=== PATIENT | female | born 1935 | race Caucasian/White ===

== ENCOUNTER 2017-12-16 16:49 | Emergency (ER) | payer MEDICARE, OTHER ==
--- NOTE | 2017-12-16 17:12 | EDM.PDOC ---
ED HPI GENERAL MEDICAL PROBLEM - General Chief Complaint: ENT Problem Stated Complaint: tightness in throat Time Seen by Provider: 12/16/17 17:00 Source of Information: Reports: Patient History Limitations: Reports: No Limitations - History of Present Illness INITIAL COMMENTS - FREE TEXT/NARRATIVE: Jaki reports post nasal discharge most of the month of November, significance unknown. The sputa is clear, seems to pool near the back of the throat and hypopharynx, not associated with hoarseness, stridor, or cough. There is no reported seasonal allergies, epistaxis, nasal polyp, sinus disease, or swollen lymph nodes of the neck. She has tried OTC meds including Flonase NS and Phenergan Exp w Cod without benefit. - Related Data Allergies Allergy/AdvReac Type Severity Reaction Status Date / Time No Known Allergies Allergy Verified 07/30/15 23:49 Home Meds: Home Meds Simvastatin [Zocor] 80 mg PO BEDTIME 07/31/15 [History] Levothyroxine [Synthroid] 50 mcg PO DAILY 02/18/16 [History] Metoprolol Succinate [Toprol XL] 25 mg PO DAILY 02/18/16 [History] Phytonadione [Vitamin K] 100 mcg PO DAILY 02/18/16 [History] Zaleplon [Sonata] 5 mg PO BEDTIME 02/18/16 [History] Acetaminophen [Tylenol] 650 mg PO Q4H PRN #0 tablet 02/19/16 [Rx] Docusate Sodium [Colace] 100 mg PO BID PRN #0 cap 02/19/16 [Rx] Warfarin [Coumadin] 2.5 mg PO DAILY #0 02/19/16 [Rx] hydrALAZINE [Apresoline] 50 mg PO TID #90 tablet 02/19/16 [Rx] Past Medical History HEENT History: Reports: Impaired Vision, Other (See Below) Other HEENT History: VERTIGO Cardiovascular History: Reports: High Cholesterol, Hypertension, Other (See Below) Other Cardiovascular History: IRREGULAR HEART RATE Respiratory History: Reports: COPD Genitourinary History: Reports: UTI, Recurrent, Other (See Below) Other Genitourinary History: 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: Other Neuro History: ON & OFF CONFUSION FOR THE PAST MONTHS - Infectious Disease History Infectious Disease History: Reports: Chicken Pox, Measles - Past Surgical History Female Surgical History: Reports: Ureteral Stent Musculoskeletal Surgical History: Reports: Hip Replacement, Knee Replacement, Shoulder Replacement, Other (See Below) Social & Family History - Family History Family Medical History: Noncontributory - Caffeine Use Caffeine Use: Reports: Coffee Caffeine Use Comment: one cup a day ED ROS ENT - Review of Systems Review Of Systems: ROS reveals no pertinent complaints other than HPI. ED EXAM, ENT - Physical Exam Exam: See Below Exam Limited By: No Limitations General Appearance: Alert, WD/WN, No Apparent Distress, Anxious Eye Exam: Bilateral Eye: EOMI, Normal Inspection, PERRL Ears: Normal External Exam, Normal TMs Nose: Normal Inspection, Normal Mucousa, No Blood Mouth/Throat: Normal Gums, Normal Lips, Normal Teeth, Other (mild posterior hyperplasia) Head: Normocephalic Neck: Normal Inspection, Supple, Non-Tender Respiratory/Chest: Lungs Clear, Normal Breath Sounds Cardiovascular: Regular Rate, Rhythm, No Murmur Back: Normal Inspection Extremities: Normal Inspection Neurological: Alert, Oriented, CN II-XII Intact, Normal Cognition, Normal Gait, No Motor/Sensory Deficits Psychiatric: Normal Affect, Anxious Skin: Warm, Dry Lymphatic: No Adenopathy Course - Vital Signs Text/Narrative:: Following assessment at the [facility] ED, I reviewed chest x rays and sinus series, within normal limits for age; CBC also WNL. - Orders/Labs/Meds Orders: Active Orders 24 hr Category Date Time Status Chest 2V [CR] Stat Exams 12/16/17 17:11 Taken Sinus Comp Min 3V [CR] Stat Exams 12/16/17 17:06 Taken Labs: Laboratory Tests 12/16/17 Range/Units 17:32 WBC 10.4 (4.5-12.0) X10-3/uL RBC 5.09 (3.23-5.20) x10(6)uL Hgb 14.6 D (11.5-15.5) g/dL Hct 43.5 (30.0-51.3) % MCV 85.4 (80-96) fL MCH 28.7 (27.7-33.6) pg MCHC 33.7 (32.2-35.4) g/dL RDW 14.8 (11.5-15.5) % Plt Count 225 (125-369) X10(3)uL MPV 8.1 (7.4-10.4) fL Neut % (Auto) 71.6 (46-82) % Lymph % (Auto) 17.2 (13-37) % Smyth % (Auto) 8.9 (4-12) % Eos % (Auto) 1 (1.0-5.0) % Baso % (Auto) 2 (0-2) % Neut # (Auto) 7.4 (1.6-8.3) # Lymph # (Auto) 1.8 (0.6-5.0) # Smyth # (Auto) 0.9 (0.0-1.3) # Eos # (Auto) 0.1 (0.0-0.8) # Baso # (Auto) 0.2 (0.0-0.2) # Departure - Departure Time of Disposition: 17:46 Disposition: Home, Self-Care 01 Condition: Good Clinical Impression: Pharyngitis Qualifiers: Pharyngitis/tonsillitis etiology: unspecified etiology Qualified Code(s): J02.9 - Acute pharyngitis, unspecified - Discharge Information Forms: ED Department Discharge - Problem List & Annotations (1) Pharyngitis SNOMED Code(s): 281306323 Code(s): J02.9 - ACUTE PHARYNGITIS, UNSPECIFIED Status: Acute Current Visit: Yes Annotation/Comment:: Pharyngitis NOS. A source for clear drainage was not apparent on exam or with limited work up. I suggested holding current meds and follow up with PCP if sxs persist. Qualifiers: Pharyngitis/tonsillitis etiology: unspecified etiology Qualified Code(s): J02.9 - Acute pharyngitis, unspecified - Problem List Review Problem List Initiated/Reviewed/Updated: Yes - My Orders Last 24 Hours: My Active Orders 12/16/17 17:06 Sinus Comp Min 3V [CR] Stat 12/16/17 17:11 Chest 2V [CR] Stat - Assessment/Plan Last 24 Hours: My Active Orders 12/16/17 17:06 Sinus Comp Min 3V [CR] Stat 12/16/17 17:11 Chest 2V [CR] Stat Plan: Follow up with PCP.
[2017-12-16 20:01] VITALS: BP 132/81
--- NOTE | 2017-12-17 10:52 | CR ---
INDICATION: Postnasal drip. SINUS X-RAYS, COMPLETE: FINDINGS: There is an earlier MRI brain that is from 02/18/2016 that I used for correlation. As visualized by this study, the paranasal sinuses look clear. No fluid levels or bony destruction. IMPRESSION: No significant paranasal sinus inflammatory disease by x-ray. MTDD
--- NOTE | 2017-12-17 10:56 | CR ---
INDICATION: Congestion. CHEST, PA AND LATERAL VIEWS: FINDINGS: No comparison studies. Lungs and pleural spaces are clear. Heart size is at the upper limits of normal. No CHF. There is a somewhat tortuous and calcified thoracic aorta. There are bilateral shoulder arthroplasties. On the lateral view, there are mild, chronic appearing compression deformities with superimposed degenerative end plate change and spurring. IMPRESSION: No acute abnormality. Specifically, no CHF or pneumonia. MTDD
== END 2017-12-16 18:05 | disposition home or self-care (01) ==
LOC: FB.ED 16:49
DX: J02.9 Acute pharyngitis, unspecified (principal); Z79.899 Other long term (current) drug therapy
CPT/HCPCS: 36415; 71046; 85025; 99283

== ENCOUNTER 2018-01-11 01:43 | Emergency (ER) | payer MEDICARE, OTHER ==
[2018-01-11] MEDS ORDERED: Albuterol/Ipratropium 3.0-0.5 MG/3 ML Neb Soln NEB ONE (01:58)
--- NOTE | 2018-01-11 02:22 | EDM.PDOC ---
ED HPI GENERAL MEDICAL PROBLEM - General Chief Complaint: Respiratory Problem Stated Complaint: CAN'T SWOLLOW Time Seen by Provider: 01/11/18 02:08 Source of Information: Reports: Patient History Limitations: Reports: No Limitations - History of Present Illness INITIAL COMMENTS - FREE TEXT/NARRATIVE: Awoke [employer] with phlegm stuck in the back of her throat, she is unable to expectorate. Denies cough. This has been a recurrent issue for the past several months. Patient took a Loratidine and cheratussin before coming to the ER tonight. Denies SOB. Onset: Today Severity: Mild - Related Data Allergies Allergy/AdvReac Type Severity Reaction Status Date / Time No Known Allergies Allergy Verified 12/16/17 19:57 Home Meds: Home Meds Simvastatin [Zocor] 80 mg PO BEDTIME 07/31/15 [History] Levothyroxine [Synthroid] 50 mcg PO DAILY 02/18/16 [History] Metoprolol Succinate [Toprol XL] 25 mg PO DAILY 02/18/16 [History] Phytonadione [Vitamin K] 100 mcg PO DAILY 02/18/16 [History] Acetaminophen [Tylenol] 650 mg PO Q4H PRN #0 tablet 02/19/16 [Rx] Warfarin [Coumadin] 2.5 mg PO DAILY #0 02/19/16 [Rx] hydrALAZINE [Apresoline] 50 mg PO TID #90 tablet 02/19/16 [Rx] amLODIPine [Norvasc] 2.5 mg PO DAILY 12/16/17 [History] Past Medical History HEENT History: Reports: Impaired Vision, Other (See Below) Other HEENT History: VERTIGO Cardiovascular History: Reports: High Cholesterol, Hypertension, Other (See Below) Other Cardiovascular History: IRREGULAR HEART RATE Respiratory History: Reports: COPD Genitourinary History: Reports: UTI, Recurrent, Other (See Below) Other Genitourinary History: 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: Other Neuro History: ON & OFF CONFUSION FOR THE PAST MONTHS - Infectious Disease History Infectious Disease History: Reports: Chicken Pox, Measles - Past Surgical History Female Surgical History: Reports: Ureteral Stent Musculoskeletal Surgical History: Reports: Hip Replacement, Knee Replacement, Shoulder Replacement, Other (See Below) Social & Family History - Family History Family Medical History: Noncontributory - Caffeine Use Caffeine Use: Reports: Coffee Caffeine Use Comment: one cup a day ED ROS GENERAL - Review of Systems Review Of Systems: ROS reveals no pertinent complaints other than HPI. ED EXAM, GENERAL - Physical Exam Exam: See Below Exam Limited By: No Limitations General Appearance: Alert, WD/WN, No Apparent Distress Nose: Normal Inspection Throat/Mouth: Normal Inspection, Normal Oropharynx, No Airway Compromise Head: Atraumatic, Normocephalic Neck: Full Range of Motion Respiratory/Chest: No Respiratory Distress, Lungs Clear, Normal Breath Sounds Cardiovascular: Regular Rate, Rhythm, No Murmur Back Exam: Full Range of Motion Extremities: Normal Range of Motion Neurological: Alert Skin Exam: Warm, Dry, Intact Course - Orders/Labs/Meds Orders: Active Orders 24 hr Category Date Time Status RT Aerosol Therapy [RC] ASDIRECTED Care 01/11/18 01:58 Active Fluticasone Propionate [Flonase] Med 01/11/18 02:35 Active 1 gm NASBOTH DAILY Medication Orders Fluticasone Propionate (Flonase) 1 gm NASBOTH DAILY MARY Meds: Medications Generic Name Dose Route Start Last Admin Trade Name Freq PRN Reason Stop Dose Admin Fluticasone Propionate 1 gm 01/11/18 02:35 Flonase NASBOTH DAILY MARY Discontinued Medications Generic Name Dose Route Start Last Admin Trade Name Freq PRN Reason Stop Dose Admin Albuterol/Ipratropium 3 ml 01/11/18 01:58 01/11/18 02:02 Duoneb 3.0-0.5 Mg/3 Ml NEB 01/11/18 01:59 3 ml ONETIME ONE Administration Fluticasone Propionate 1 gm 01/11/18 09:00 Flonase NASBOTH DAILY MARY - Re-Assessments/Exams Free Text/Narrative Re-Assessment/Exam: 01/11/18 02:53 No significant change after Duoneb. Patient given tea with honey PO. Flonase two sprays instilled each nostril. Departure - Departure Time of Disposition: 02:54 Disposition: Home, Self-Care 01 Condition: Good Clinical Impression: Post-nasal drip - Discharge Information Instructions: Postnasal Drip Referrals: Clarke Echols MD [Primary Care Provider] - Forms: ED Department Discharge Additional Instructions: Instill Flonase two sprays per nostril daily as needed. Follow up with your primary physician if symptoms don't improve 2 days. Return to the ER as needed. - My Orders Last 24 Hours: My Active Orders 01/11/18 01:58 RT Aerosol Therapy [RC] ASDIRECTED 01/11/18 02:35 Fluticasone Propionate [Flonase] 1 gm NASBOTH DAILY - Assessment/Plan Last 24 Hours: My Active Orders 01/11/18 01:58 RT Aerosol Therapy [RC] ASDIRECTED 01/11/18 02:35 Fluticasone Propionate [Flonase] 1 gm NASBOTH DAILY
[2018-01-11] MEDS ORDERED: Fluticasone Propionate Nasal Spray 16 GM Bottle NASBOTH SCH ×2 (02:35→09:00)
[2018-01-11 04:33] VITALS: BP 125/80
== END 2018-01-11 03:10 | disposition home or self-care (01) ==
LOC: FB.ED 01:43
DX: R09.82 Postnasal drip (principal); I10 Essential (primary) hypertension; Z79.899 Other long term (current) drug therapy
CPT/HCPCS: 94640; 99282; 99283; A9270-GY; J7620-GY

== ENCOUNTER 2019-05-22 14:20 | Emergency (ER) | payer MEDICARE, OTHER ==
[2019-05-22 16:07] VITALS: BP 127/53; PULSE 81
[2019-05-22] MEDS ORDERED: cefTRIAXone 1 GM Vial IM ONE (17:38)
--- NOTE | 2019-05-22 17:48 | EDM.PDOC ---
ED HPI GENERAL MEDICAL PROBLEM - General Chief Complaint: Lower Extremity Injury/Pain Stated Complaint: HURT RIGHT KNEE Time Seen by Provider: 05/22/19 16:05 Source of Information: Reports: Patient History Limitations: Reports: No Limitations - History of Present Illness INITIAL COMMENTS - FREE TEXT/NARRATIVE: noted right lower leg swelling and pain , getting worse pt is on coumadin and bruising also got worse in the RLE has pain and swelling in the anterior right leg - Related Data Allergies Allergy/AdvReac Type Severity Reaction Status Date / Time No Known Allergies Allergy Verified 05/22/19 15:56 Home Meds: Home Meds Levothyroxine [Synthroid] 50 mcg PO DAILY 02/18/16 [History] Phytonadione [Vitamin K] 100 mcg PO DAILY 02/18/16 [History] Acetaminophen [Tylenol] 650 mg PO Q4H PRN #0 tablet 02/19/16 [Rx] Warfarin [Coumadin] 2.5 mg PO DAILY #0 02/19/16 [Rx] hydrALAZINE [Apresoline] 50 mg PO TID #90 tablet 02/19/16 [Rx] amLODIPine [Norvasc] 2.5 mg PO DAILY 12/16/17 [History] Furosemide [Lasix] 20 mg PO DAILY #30 tab 02/27/18 [Rx] Potassium Chloride 10 meq PO BEDTIME #30 cap.er 02/27/18 [Rx] Spironolactone [Aldactone] 12.5 mg PO DAILY #30 tab 03/29/18 [Rx] Amoxicillin/Potassium Clav [Augmentin 875-125 Tablet] 1 each PO BID #20 tablet 05/22/19 [Rx] Past Medical History HEENT History: Reports: Impaired Vision, Other (See Below) Other HEENT History: VERTIGO Cardiovascular History: Reports: High Cholesterol, Hypertension, Other (See Below) Other Cardiovascular History: IRREGULAR HEART RATE Respiratory History: Reports: COPD Genitourinary History: Reports: UTI, Recurrent, Other (See Below) Other Genitourinary History: 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: Other Neuro History: ON & OFF CONFUSION FOR THE PAST MONTHS - Infectious Disease History Infectious Disease History: Reports: Chicken Pox, Measles - Past Surgical History GI Surgical History: Reports: Appendectomy Female Surgical History: Reports: Ureteral Stent Musculoskeletal Surgical History: Reports: Hip Replacement, Knee Replacement, Shoulder Replacement, Other (See Below) Social & Family History - Family History Family Medical History: Noncontributory - Tobacco Use Smoking Status *Q: Never Smoker Second Hand Smoke Exposure: No - Caffeine Use Caffeine Use: Reports: Coffee Caffeine Use Comment: one cup a day - Recreational Drug Use Recreational Drug Use: No Review of Systems - Review of Systems Review Of Systems: See Below Constitutional: Reports: No Symptoms Eyes: Reports: No Symptoms Ears: Reports: No Symptoms Nose: Reports: No Symptoms Mouth/Throat: Reports: No Symptoms Respiratory: Reports: No Symptoms Cardiovascular: Reports: No Symptoms GI/Abdominal: Reports: No Symptoms Genitourinary: Reports: No Symptoms Musculoskeletal: Reports: Leg Pain Skin: Reports: Bruising, Erythema (warm to touch , tender to touch) Neurological: Reports: No Symptoms Psychiatric: Reports: No Symptoms ED EXAM, GENERAL - Physical Exam Exam: See Below Exam Limited By: No Limitations General Appearance: Alert, WD/WN, No Apparent Distress Eye Exam: Bilateral Eye: EOMI Ears: Normal External Exam Ear Exam: Bilateral Ear: TM Dull Nose: Normal Inspection Throat/Mouth: Normal Inspection Head: Atraumatic, Normocephalic Neck: Supple, Non-Tender, Full Range of Motion Respiratory/Chest: Lungs Clear Cardiovascular: Regular Rate, Rhythm GI/Abdominal: Soft, Non-Tender Back Exam: Normal Inspection. No: CVA Tenderness (R), CVA Tenderness (L) Extremities: Pedal Edema, Leg Pain, Increased Warmth, Redness (ont anteriro right leg , lower 1/3rd here ias area about [id number] tender and warm to touch) Course - Vital Signs Last Recorded V/S: Last Vital Signs Temp 36.3 C 05/22/19 15:59 Pulse 81 05/22/19 15:59 Resp 18 05/22/19 15:59 BP 127/53 L 05/22/19 15:59 Pulse Ox 100 05/22/19 15:59 - Orders/Labs/Meds Orders: Active Orders 24 hr Category Date Time Status VL Duplex Lwr Ext Veins Ltd Rt [US] Stat Exams 05/22/19 15:20 Taken Meds: Medications Discontinued Medications Generic Name Dose Route Start Last Admin Trade Name Freq PRN Reason Stop Dose Admin Ceftriaxone Sodium 1 gm 05/22/19 17:38 Rocephin IM 05/22/19 17:39 ONETIME ONE - Re-Assessments/Exams Free Text/Narrative Re-Assessment/Exam: 05/22/19 17:52 ultrasound of the lower extremity done is negative for DVT Departure - Departure Time of Disposition: 18:00 Disposition: Home, Self-Care 01 Condition: Good Clinical Impression: Cellulitis of leg, right, Cellulitis of leg, except foot - Discharge Information *PRESCRIPTION DRUG MONITORING PROGRAM REVIEWED*: Not Applicable *COPY OF PRESCRIPTION DRUG MONITORING REPORT IN PATIENT AI: Not Applicable Prescriptions: Amoxicillin/Potassium Clav [Augmentin 875-125 Tablet] 1 each PO BID #20 tablet Instructions: Cellulitis, Adult, [id number] Referrals: Clarke Echols MD [Primary Care Provider] - Sepsis Event Note - Evaluation Sepsis Screening Result: No Definite Risk - Focused Exam Vital Signs: Vital Signs Temp Pulse Resp BP Pulse Ox 05/22/19 15:59 36.3 C 81 18 127/53 L 100 Date Exam was Performed: 05/22/19 Time Exam was Performed: 17:40 - My Orders Last 24 Hours: My Active Orders 05/22/19 15:20 VL Duplex Lwr Ext Veins Ltd Rt [US] Stat - Assessment/Plan Last 24 Hours: My Active Orders 05/22/19 15:20 VL Duplex Lwr Ext Veins Ltd Rt [US] Stat
--- NOTE | 2019-05-23 15:45 | US ---
INDICATION: Right leg swelling, question DVT. DUPLEX ULTRASOUND RIGHT LOWER EXTREMITY VEINS: Utilizing 2-D real time, duplex Doppler spectral analysis and color flow imaging, examination of the lower extremity veins, including the common femoral vein, proximal greater saphenous vein, proximal deep femoral vein, proximal femoral vein, mid femoral vein, distal femoral vein, popliteal vein, posterior tibial vein, anterior tibial vein (unable to visualize the peroneal vein), revealed no evidence of deep venous thrombosis or obstruction. Compression views showed no abnormal lack of compression to suggest thrombosis. Interstitial edema is noted in the popliteal area. No evidence of incompetence of the valves was identified. IMPRESSION: Duplex ultrasound, lower extremity veins, shows no evidence of deep venous thrombosis or incompetence. MTDD
== END 2019-05-22 18:00 | disposition home or self-care (01) ==
LOC: FB.ED 14:20
DX: L03.115 Cellulitis of right lower limb (principal); E78.00 Pure hypercholesterolemia, unspecified; I10 Essential (primary) hypertension; J44.9 Chronic obstructive pulmonary disease, unspecified; Z79.899 Other long term (current) drug therapy; Z79.01 Long term (current) use of anticoagulants; Z90.49 Acquired absence of other specified parts of digestive tract; Z90.710 Acquired absence of both cervix and uterus; Z96.659 Presence of unspecified artificial knee joint; M79.89 Other specified soft tissue disorders
CPT/HCPCS: 93971; 96372; 99283; J0696

== ENCOUNTER 2022-03-01 19:53 | Emergency (ER) | payer MEDICARE, OTHER ==
[2022-03-01] MEDS ORDERED: Cyclobenzaprine 10 MG Tab PO ONE (19:54)
[2022-03-01 20:48] VITALS: BP 145/83; PULSE 115
== END 2022-03-01 21:02 | disposition home or self-care (01) ==
LOC: FB.ED 19:53
DX: M43.6 Torticollis (principal); J44.9 Chronic obstructive pulmonary disease, unspecified; E78.00 Pure hypercholesterolemia, unspecified; I10 Essential (primary) hypertension; Z79.899 Other long term (current) drug therapy; Z79.01 Long term (current) use of anticoagulants
CPT/HCPCS: 99283; A9270-GY

== ENCOUNTER 2022-08-30 21:17 | Inpatient (IN) | payer MEDICARE ==
[2022-08-30] MEDS ORDERED: Sodium Chloride 0.9% 10 ML Syringe FLUSH PRN (21:23)
[2022-08-30 21:48] LABS: BASOPHILS PERCENT AUTO 0.2 % (0.2-1.5); EOSINOPHILS PERCENT AUTO 0.1 % (0.6-8.1); HEMATOCRIT 40.5 % (34.2-48.2); HEMOGLOBIN 13.3 g/dL (11.4-15.5); LYMPHOCYTES ABSOLUTE AUTO 0.6 x10-3/uL (1.0-4.4); LYMPHOCYTES PERCENT AUTO 4.5 % (18.4-52.1); MEAN CORPUSCULAR HEMOGLOBIN 28.1 pg (23.9-33.9); MEAN CORPUSCULAR HGB CONC 32.8 g/dL (31.9-34.8); MEAN CORPUSCULAR VOLUME 85.7 fL (76.7-100.5); MEAN PLATELET VOLUME 7.7 fL (7.1-12.4); MONOCYTES ABSOLUTE AUTO 1.2 x10-3/uL (0.3-1.0); MONOCYTES PERCENT AUTO 8.6 % (4.4-15.7); NEUTROPHILS ABSOLUTE AUTO 11.6 x10-3/uL (1.5-6.3); NEUTROPHILS PERCENT AUTO 86.6 % (30.8-76.2); PLATELET COUNT,PLT 250 x10(3)uL (151-488); RED BLOOD CELL COUNT 4.72 x10(6)uL (3.60-5.20); RED CELL DISTRIBUTION WIDTH 15.1 % (12.3-16.5); WHITE BLOOD CELL COUNT,WBC 13.4 x10-3/uL (3.0-10.3)
[2022-08-30 21:53] LABS: BLOOD UREA NITROGEN,BUN 27 mg/dL (7-18); BUN/CREATININE RATIO 16.9 (9-20); CALCIUM 9.3 mg/dL (8.6-10.2); CARBON DIOXIDE,CO2 29 mmol/L (21-32); CHLORIDE,CL 96 mmol/L (100-110); CREATININE 1.6 mg/dL (0.55-1.02); ESTIMATED GFR 31 mL/min (>60); GLUCOSE RANDOM 145 mg/dL (80-116); POTASSIUM,K 3.7 mmol/L (3.5-5.3); SODIUM,NA 135 mmol/L (135-145)
[2022-08-30 22:58] LABS: INR 2.13 (1.00-1.24); PROTHROMBIN TIME 21.4 sec (9.0-11.1)
[2022-08-31 00:47] LABS: BILIRUBIN,URINE NEGATIVE (NEGATIVE); GLUCOSE,URINE NORMAL (NORMAL); KETONES,URINE NEGATIVE (NEGATIVE); LEUKOCYTE ESTERASE,URINE NEGATIVE (NEGATIVE); NITRITE,URINE NEGATIVE (NEGATIVE); OCCULT BLOOD,URINE LARGE (NEGATIVE); PROTEIN,URINE 100 mg/dL (NEGATIVE); UROBILINOGEN,URINE NORMAL (NEGATIVE)
[2022-08-31 00:55] LABS: APPEARANCE,URINE CLEAR (CLEAR); BACTERIA,URINE FEW (NS); COLOR,URINE YELLOW (YELLOW); SQUAMOUS EPITHELIAL CELLS,UR FEW (NS,R,O); WBC,URINE 0-5 (0-5)
[2022-08-31] MEDS: Acetaminophen 325 MG Tab PO PRN ×2 (04:00→15:16)
[2022-08-31 07:23] LABS: BASOPHILS ABSOLUTE AUTO 0.1 x10-3/uL (0.0-0.1); BASOPHILS PERCENT AUTO 0.4 % (0.2-1.5); EOSINOPHILS ABSOLUTE AUTO 0.1 x10-3/uL (0.0-0.8); EOSINOPHILS PERCENT AUTO 0.7 % (0.6-8.1); HEMATOCRIT 37.8 % (34.2-48.2); HEMOGLOBIN 12.3 g/dL (11.4-15.5); LYMPHOCYTES ABSOLUTE AUTO 0.9 x10-3/uL (1.0-4.4); LYMPHOCYTES PERCENT AUTO 7.1 % (18.4-52.1); MEAN CORPUSCULAR HEMOGLOBIN 27.9 pg (23.9-33.9); MEAN CORPUSCULAR HGB CONC 32.6 g/dL (31.9-34.8); MEAN CORPUSCULAR VOLUME 85.6 fL (76.7-100.5); MONOCYTES ABSOLUTE AUTO 1.6 x10-3/uL (0.3-1.0); MONOCYTES PERCENT AUTO 11.8 % (4.4-15.7); NEUTROPHILS ABSOLUTE AUTO 10.8 x10-3/uL (1.5-6.3); PLATELET COUNT,PLT 194 x10(3)uL (151-488); RED BLOOD CELL COUNT 4.41 x10(6)uL (3.60-5.20); RED CELL DISTRIBUTION WIDTH 14.8 % (12.3-16.5); WHITE BLOOD CELL COUNT,WBC 13.4 x10-3/uL (3.0-10.3)
[2022-08-31 07:31] LABS: BLOOD UREA NITROGEN,BUN 26 mg/dL (7-18); BUN/CREATININE RATIO 17.3 (9-20); CALCIUM 9.2 mg/dL (8.6-10.2); CARBON DIOXIDE,CO2 25 mmol/L (21-32); CHLORIDE,CL 99 mmol/L (100-110); CREATININE 1.5 mg/dL (0.55-1.02); EST CRCL DRUG DOSING (CG) 29.92 mL/min; ESTIMATED GFR 33 mL/min (>60); GLUCOSE RANDOM 130 mg/dL (80-116); POTASSIUM,K 3.5 mmol/L (3.5-5.3); SODIUM,NA 136 mmol/L (135-145)
[2022-08-31] MEDS ORDERED: Aspirin 81 MG Tab.EC**OWN MED PO SCH (09:00)
[2022-08-31] MEDS ORDERED: Potassium Chloride 10 MEQ Tab.ER**OWN MED PO SCH (09:00)
[2022-08-31] MEDS ORDERED: Warfarin Sliding Scale PO SCH (09:00)
[2022-08-31] MEDS ORDERED: Metoprolol Succinate 25 MG Tab.ER**OWN MED PO SCH (09:00)
[2022-08-31] MEDS ORDERED: Furosemide 40 MG Tab**OWN MED PO SCH (09:00)
[2022-08-31] MEDS ORDERED: DILTIAZEM 120 MG PO SCH (09:00)
[2022-08-31] MEDS ORDERED: Levothyroxine 50 MCG Tab**OWN MED PO SCH (09:30)
[2022-08-31 13:20] LABS: INR 2.63 (1.00-1.24); PROTHROMBIN TIME 26.4 sec (9.0-11.1)
[2022-08-31] MEDS ORDERED: Warfarin 2.5 MG Tab**OWN MED PO SCH (16:00)
[2022-09-01] MEDS ORDERED: Levothyroxine 50 MCG Tab PO SCH ×2 (06:00→07:30)
[2022-09-01 06:57] LABS: BASOPHILS PERCENT AUTO 0.5 % (0.2-1.5); EOSINOPHILS ABSOLUTE AUTO 0.1 x10-3/uL (0.0-0.8); EOSINOPHILS PERCENT AUTO 0.7 % (0.6-8.1); HEMATOCRIT 38.6 % (34.2-48.2); HEMOGLOBIN 12.6 g/dL (11.4-15.5); LYMPHOCYTES PERCENT AUTO 9.1 % (18.4-52.1); MEAN CORPUSCULAR HEMOGLOBIN 27.9 pg (23.9-33.9); MEAN CORPUSCULAR HGB CONC 32.7 g/dL (31.9-34.8); MEAN CORPUSCULAR VOLUME 85.4 fL (76.7-100.5); MEAN PLATELET VOLUME 8.1 fL (7.1-12.4); MONOCYTES PERCENT AUTO 8.8 % (4.4-15.7); NEUTROPHILS ABSOLUTE AUTO 8.8 x10-3/uL (1.5-6.3); NEUTROPHILS PERCENT AUTO 80.9 % (30.8-76.2); PLATELET COUNT,PLT 226 x10(3)uL (151-488); RED BLOOD CELL COUNT 4.52 x10(6)uL (3.60-5.20); WHITE BLOOD CELL COUNT,WBC 10.9 x10-3/uL (3.0-10.3)
[2022-09-01 07:03] LABS: INR 3.15 (1.00-1.24); PROTHROMBIN TIME 31.4 sec (9.0-11.1)
[2022-09-01 07:05] LABS: BLOOD UREA NITROGEN,BUN 32 mg/dL (7-18); BUN/CREATININE RATIO 18.8 (9-20); CALCIUM 9.1 mg/dL (8.6-10.2); CARBON DIOXIDE,CO2 29 mmol/L (21-32); CHLORIDE,CL 97 mmol/L (100-110); CREATININE 1.7 mg/dL (0.55-1.02); ESTIMATED GFR 29 mL/min (>60); GLUCOSE RANDOM 103 mg/dL (80-116); POTASSIUM,K 3.7 mmol/L (3.5-5.3); SODIUM,NA 135 mmol/L (135-145)
[2022-09-01] MEDS ORDERED: Potassium Chloride 10 MEQ Tab.ER PO SCH (09:00)
[2022-09-01] MEDS ORDERED: Furosemide 40 MG Tab PO SCH (09:00)
[2022-09-01] MEDS ORDERED: Metoprolol Succinate 25 MG Tab.ER PO SCH (09:00)
[2022-09-01] MEDS ORDERED: Aspirin 81 MG Tab.EC PO SCH (09:00)
[2022-09-01] MEDS ORDERED: Diltiazem 120 MG Cap.CD PO SCH (09:00)
[2022-09-01 11:32] VITALS: BP 128/69; PULSE 89
[2022-09-01] MEDS ORDERED: Warfarin 2.5 MG Tab PO SCH (16:00)
[2022-09-01] MEDS ORDERED: Warfarin 2.5 MG Tab**OWN MED PO SCH (16:00)
[2022-09-02] MEDS ORDERED: Warfarin 2.5 MG Tab PO SCH (16:00)
== END 2022-09-01 11:28 | disposition home health service (06) | DRG 282 ==
LOC: FB.ED 21:17 → FB.MS 22:29 → OBSVTOIN 08-31 13:37
PROVIDERS: ADMIT Family Medicine; ATTEND Family Medicine
DX: I21.4 Non-ST elevation (NSTEMI) myocardial infarction (principal); I12.9 Hypertensive chronic kidney disease with stage 1 through stage 4 chronic kidney disease, or unspecified chronic kidney disease; D72.829 Elevated white blood cell count, unspecified; I48.0 Paroxysmal atrial fibrillation; N18.31 Chronic kidney disease, stage 3a; E78.2 Mixed hyperlipidemia; H54.7 Unspecified visual loss; E78.00 Pure hypercholesterolemia, unspecified; Z96.649 Presence of unspecified artificial hip joint; Z96.659 Presence of unspecified artificial knee joint; Z96.619 Presence of unspecified artificial shoulder joint; Z90.49 Acquired absence of other specified parts of digestive tract; Z79.82 Long term (current) use of aspirin; Z79.01 Long term (current) use of anticoagulants; Z95.2 Presence of prosthetic heart valve; Z79.899 Other long term (current) drug therapy; Z98.890 Other specified postprocedural states
CPT/HCPCS: 36415; 71045; 80048; 81001; 83605; 84484; 85025; 85610; 93005; 93010; 99223; 99238; 99285; A9270-GY; G0378

== ENCOUNTER 2023-01-15 16:23 | Observation (INO) | payer MEDICARE ==
[2023-01-15 17:07] LABS: BLOOD UREA NITROGEN,BUN 36 mg/dL (7-18); BUN/CREATININE RATIO 22.5 (9-20); CALCIUM 9.7 mg/dL (8.6-10.2); CARBON DIOXIDE,CO2 26 mmol/L (21-32); CHLORIDE,CL 100 mmol/L (100-110); CREATININE 1.6 mg/dL (0.55-1.02); ESTIMATED GFR 31 mL/min (>60); GLUCOSE RANDOM 107 mg/dL (80-116); SODIUM,NA 138 mmol/L (135-145)
[2023-01-15] MEDS ORDERED: Morphine 2 MG/ML SYRINGE IVPUSH ONE (17:10)
[2023-01-15 17:13] LABS: ALANINE AMINOTRANSFERASE,ALT 19 U/L (12-36); ALBUMIN 3.8 g/dL (3.2-4.6); ALKALINE PHOSPHATASE 135 IU/L (56-112); ASPARTATE AMNIOTRANSFERASE,AST 27 IU/L (5-25); BILIRUBIN TOTAL 0.7 mg/dL (0.1-1.3); PROTEIN TOTAL,TP 7.7 g/dL (6.0-8.0)
[2023-01-15 17:21] LABS: TROPONIN I 12.4 pg/mL (4.0-60.3)
[2023-01-15 17:25] LABS: BASOPHILS ABSOLUTE AUTO 0.1 x10-3/uL (0.0-0.1); BASOPHILS PERCENT AUTO 0.7 % (0.2-1.5); EOSINOPHILS ABSOLUTE AUTO 0.1 x10-3/uL (0.0-0.8); EOSINOPHILS PERCENT AUTO 0.8 % (0.6-8.1); HEMOGLOBIN 14.1 g/dL (11.4-15.5); LYMPHOCYTES ABSOLUTE AUTO 1.9 x10-3/uL (1.0-4.4); LYMPHOCYTES PERCENT AUTO 14.3 % (18.4-52.1); MEAN CORPUSCULAR HEMOGLOBIN 27.6 pg (23.9-33.9); MEAN CORPUSCULAR HGB CONC 32.8 g/dL (31.9-34.8); MEAN CORPUSCULAR VOLUME 84.1 fL (76.7-100.5); MEAN PLATELET VOLUME 8.9 fL (7.1-12.4); MONOCYTES PERCENT AUTO 7.5 % (4.4-15.7); NEUTROPHILS ABSOLUTE AUTO 10.2 x10-3/uL (1.5-6.3); NEUTROPHILS PERCENT AUTO 76.7 % (30.8-76.2); PLATELET COUNT,PLT 184 x10(3)uL (151-488); RED BLOOD CELL COUNT 5.11 x10(6)uL (3.60-5.20); RED CELL DISTRIBUTION WIDTH 17.7 % (12.3-16.5); WHITE BLOOD CELL COUNT,WBC 13.3 x10-3/uL (3.0-10.3)
[2023-01-15 17:36] LABS: INR 1.89 (1.00-1.24); PROTHROMBIN TIME 19.2 sec (9.0-11.1)
[2023-01-15 18:22] LABS: BILIRUBIN,URINE NEGATIVE (NEGATIVE); GLUCOSE,URINE NORMAL (NORMAL); KETONES,URINE NEGATIVE (NEGATIVE); LEUKOCYTE ESTERASE,URINE NEGATIVE (NEGATIVE); NITRITE,URINE NEGATIVE (NEGATIVE); OCCULT BLOOD,URINE MODERATE (NEGATIVE); PH,URINE 6.5 (5.0-6.5); PROTEIN,URINE NEGATIVE (NEGATIVE); UROBILINOGEN,URINE NORMAL (NEGATIVE)
[2023-01-15 18:30] LABS: APPEARANCE,URINE CLEAR (CLEAR); BACTERIA,URINE RARE (NS); COLOR,URINE YELLOW (YELLOW); RBC,URINE 0-5 (0-5); SQUAMOUS EPITHELIAL CELLS,UR OCCASIONAL (NS,R,O); WBC,URINE 0-5 (0-5)
[2023-01-15 18:36] LABS: PTT,PARTIAL THROMBOPLSTIN TIME 31.2 SECONDS (24.4-33.2)
[2023-01-15] MEDS: Ondansetron 4 MG/2 ML SDV IV PRN (20:15)
[2023-01-15] MEDS: Morphine 2 MG/ML SYRINGE IVPUSH PRN (20:20)
[2023-01-15] MEDS: Sodium Chloride 0.9% 10 ML Syringe FLUSH PRN (20:20)
[2023-01-15] MEDS: Sodium Chloride 0.9% 1,000 ML IV SCH (20:40)
[2023-01-16 06:22] LABS: BASOPHILS PERCENT AUTO 0.3 % (0.2-1.5); EOSINOPHILS PERCENT AUTO 0.3 % (0.6-8.1); HEMATOCRIT 37.3 % (34.2-48.2); HEMOGLOBIN 12.2 g/dL (11.4-15.5); LYMPHOCYTES PERCENT AUTO 10.1 % (18.4-52.1); MEAN CORPUSCULAR HEMOGLOBIN 27.6 pg (23.9-33.9); MEAN CORPUSCULAR HGB CONC 32.6 g/dL (31.9-34.8); MEAN CORPUSCULAR VOLUME 84.6 fL (76.7-100.5); MEAN PLATELET VOLUME 8.2 fL (7.1-12.4); MONOCYTES ABSOLUTE AUTO 1.1 x10-3/uL (0.3-1.0); MONOCYTES PERCENT AUTO 10.5 % (4.4-15.7); NEUTROPHILS ABSOLUTE AUTO 8.1 x10-3/uL (1.5-6.3); NEUTROPHILS PERCENT AUTO 78.8 % (30.8-76.2); PLATELET COUNT,PLT 142 x10(3)uL (151-488); RED BLOOD CELL COUNT 4.41 x10(6)uL (3.60-5.20); RED CELL DISTRIBUTION WIDTH 17.3 % (12.3-16.5); WHITE BLOOD CELL COUNT,WBC 10.3 x10-3/uL (3.0-10.3)
[2023-01-16 06:29] LABS: INR 1.98 (1.00-1.24)
[2023-01-16 06:32] LABS: A/G RATIO 0.9; ALANINE AMINOTRANSFERASE,ALT 15 U/L (12-36); ALKALINE PHOSPHATASE 105 IU/L (56-112); ASPARTATE AMNIOTRANSFERASE,AST 22 IU/L (5-25); BILIRUBIN TOTAL 0.7 mg/dL (0.1-1.3); BLOOD UREA NITROGEN,BUN 31 mg/dL (7-18); BUN/CREATININE RATIO 20.7 (9-20); CALCIUM 8.6 mg/dL (8.6-10.2); CARBON DIOXIDE,CO2 29 mmol/L (21-32); CHLORIDE,CL 104 mmol/L (100-110); CREATININE 1.5 mg/dL (0.55-1.02); EST CRCL DRUG DOSING (CG) 18.62 mL/min; ESTIMATED GFR 33 mL/min (>60); GLUCOSE RANDOM 104 mg/dL (80-116); POTASSIUM,K 3.8 mmol/L (3.5-5.3); PROTEIN TOTAL,TP 6.3 g/dL (6.0-8.0); SODIUM,NA 141 mmol/L (135-145)
[2023-01-16] MEDS: Sodium Chloride 0.9% 10 ML Syringe FLUSH PRN (07:28)
[2023-01-16] MEDS: Morphine 2 MG/ML SYRINGE IVPUSH PRN ×3 (07:30→19:42)
[2023-01-16] MEDS ORDERED: DILTIAZEM HCL 120 MG PO SCH (09:00)
[2023-01-16] MEDS ORDERED: POTASSIUM CHLORIDE 10 MEQ PO SCH (09:00)
[2023-01-16] MEDS ORDERED: Levothyroxine 50 MCG Tab *PTOM PO SCH (09:00)
[2023-01-16] MEDS: Sodium Chloride 0.9% 1,000 ML IV SCH (10:07)
[2023-01-16] MEDS: Ondansetron 4 MG/2 ML SDV IV PRN (15:31)
[2023-01-16] MEDS ORDERED: Phytonadione 5 MG Tab PO ONE ×2 (15:41→16:00)
[2023-01-16 20:55] VITALS: BP 134/77; PULSE 71
== END 2023-01-16 20:00 ==
LOC: FB.ED 16:23 → FB.MS 20:19
PROVIDERS: ADMIT Emergency Medicine; ATTEND Family Medicine
DX: M97.02XA Periprosthetic fracture around internal prosthetic left hip joint, initial encounter (principal); I13.0 Hypertensive heart and chronic kidney disease with heart failure and stage 1 through stage 4 chronic kidney disease, or unspecified chronic kidney disease; N18.31 Chronic kidney disease, stage 3a; I50.9 Heart failure, unspecified; I48.0 Paroxysmal atrial fibrillation; E78.2 Mixed hyperlipidemia; E03.9 Hypothyroidism, unspecified; F02.B18 Dementia in other diseases classified elsewhere, moderate, with other behavioral disturbance; E66.9 Obesity, unspecified; Z95.2 Presence of prosthetic heart valve; Z79.890 Hormone replacement therapy; Z79.01 Long term (current) use of anticoagulants; Z79.82 Long term (current) use of aspirin; Z79.899 Other long term (current) drug therapy; Z96.643 Presence of artificial hip joint, bilateral; W18.31XA Fall on same level due to stepping on an object, initial encounter; Z68.33 Body mass index [BMI] 33.0-33.9, adult
CPT/HCPCS: 36415; 51702; 72100; 73522; 80053; 81001; 83880; 84484; 85025; 85610; 85730; 93005; 93010; 96374; 96375; 96376; 99285; 99285-25; A9270-GY; G0378; J2270; J2405; J3490; J7030

== ENCOUNTER 2023-02-18 15:56 | Inpatient (IN) | payer MEDICARE ==
[2023-02-18] MEDS ORDERED: Acetaminophen 500 MG Tab PO ONE (16:24)
[2023-02-18] MEDS ORDERED: Sodium Chloride 0.9% 1,000 ML IV SCH (16:30)
[2023-02-18 16:51] LABS: HEMATOCRIT 32.2 % (34.2-48.2); HEMOGLOBIN 10.3 g/dL (11.4-15.5); MEAN CORPUSCULAR HEMOGLOBIN 27.4 pg (23.9-33.9); MEAN CORPUSCULAR HGB CONC 32.1 g/dL (31.9-34.8); MEAN CORPUSCULAR VOLUME 85.1 fL (76.7-100.5); MEAN PLATELET VOLUME 8.5 fL (7.1-12.4); PLATELET COUNT,PLT 267 x10(3)uL (151-488); RED BLOOD CELL COUNT 3.78 x10(6)uL (3.60-5.20); RED CELL DISTRIBUTION WIDTH 17.7 % (12.3-16.5); WHITE BLOOD CELL COUNT,WBC 13.7 x10-3/uL (3.0-10.3)
[2023-02-18 16:57] LABS: BLOOD UREA NITROGEN,BUN 31 mg/dL (7-18); BUN/CREATININE RATIO 20.7 (9-20); CALCIUM 8.5 mg/dL (8.6-10.2); CARBON DIOXIDE,CO2 26 mmol/L (21-32); CHLORIDE,CL 99 mmol/L (100-110); CREATININE 1.5 mg/dL (0.55-1.02); ESTIMATED GFR 33 mL/min (>60); GLUCOSE RANDOM 123 mg/dL (80-116); POTASSIUM,K 3.9 mmol/L (3.5-5.3); SODIUM,NA 133 mmol/L (135-145)
[2023-02-18 17:02] LABS: A/G RATIO 0.5; ALANINE AMINOTRANSFERASE,ALT 11 U/L (12-36); ALBUMIN 2.3 g/dL (3.2-4.6); ALKALINE PHOSPHATASE 261 IU/L (56-112); ASPARTATE AMNIOTRANSFERASE,AST 17 IU/L (5-25); BILIRUBIN TOTAL 0.7 mg/dL (0.1-1.3); PROTEIN TOTAL,TP 6.7 g/dL (6.0-8.0)
[2023-02-18 17:05] LABS: LYMPHOCYTES PERCENT MAN 3 % (13-37); MONOCYTES PERCENT MAN 3 % (4-12); SEG NEUTROPHILS PERCENT MAN 94 % (46-82)
[2023-02-18] MEDS ORDERED: VANCOmycin 1.5 GM/300 ML 1.5 GM in Premix Bag 1 BAG IV ONE (17:07)
[2023-02-18] MEDS: Piperacillin/Tazobactam 3.375 GM in Sodium Chloride 0.9% 50 ML IV SCH ×2 (17:10→22:14)
[2023-02-18 17:23] LABS: INFLUENZA A NAA NEGATIVE (NEGATIVE); INFLUENZA B NAA NEGATIVE (NEGATIVE); RESPIRATORY SYNCYTIAL VIR NAA NEGATIVE (NEGATIVE)
[2023-02-18 17:24] LABS: CORONAVIRUS COVID-19 NAA NEGATIVE (NEGATIVE)
[2023-02-18 18:33] LABS: BILIRUBIN,URINE NEGATIVE (NEGATIVE); GLUCOSE,URINE NORMAL (NORMAL); KETONES,URINE 15 mg/dL (NEGATIVE); LEUKOCYTE ESTERASE,URINE LARGE (NEGATIVE); NITRITE,URINE NEGATIVE (NEGATIVE); OCCULT BLOOD,URINE LARGE (NEGATIVE); PROTEIN,URINE 30 mg/dL (NEGATIVE); UROBILINOGEN,URINE NORMAL (NEGATIVE)
[2023-02-18 18:35] LABS: APPEARANCE,URINE SLIGHTLY CLOUDY (CLEAR); COLOR,URINE ORANGE (YELLOW); RBC,URINE 20-30 (0-5); SQUAMOUS EPITHELIAL CELLS,UR FEW (NS,R,O); WBC,URINE 20-30 (0-5)
[2023-02-18 18:36] LABS: BACTERIA,URINE MANY (NS)
[2023-02-18] MEDS ORDERED: D5 1/2 NS w/ 20 mEq/L KCl 1,000 ML IV SCH (19:30)
[2023-02-18 19:40] LABS: INR 4.86 (1.00-1.24); PROTHROMBIN TIME 47.8 sec (9.0-11.1)
[2023-02-18] MEDS ORDERED: Ondansetron 4 MG/2 ML SDV IV PRN (19:40)
[2023-02-18] MEDS ORDERED: Polyethylene Glycol 3350 Powder 17 GM Packet PO PRN (19:44)
[2023-02-18] MEDS ORDERED: Naloxone 4 MG Nasal Spray NAS PRN (19:44)
[2023-02-18] MEDS ORDERED: Dextrose 5%-0.45% NaCl 1,000 ML IV SCH (19:45)
[2023-02-18] MEDS: Acetaminophen 325 MG Tab PO SCH (20:56)
[2023-02-18] MEDS: Tamsulosin 0.4 MG Cap.ER PO SCH (20:57)
[2023-02-18] MEDS: Sennosides 8.6 MG Tab PO SCH (20:57)
[2023-02-18] MEDS: oxyCODONE 5 MG Tab PO PRN (20:57)
[2023-02-18] MEDS: Metoprolol Succinate 25 MG Tab.ER PO SCH (20:58)
[2023-02-19] MEDS: Pantoprazole 40 MG Tab.CR PO SCH (05:43)
[2023-02-19] MEDS: Piperacillin/Tazobactam 3.375 GM in Sodium Chloride 0.9% 50 ML IV SCH ×4 (05:43→22:15)
[2023-02-19] MEDS: Levothyroxine 50 MCG Tab PO SCH (05:43)
[2023-02-19 06:56] LABS: HEMOGLOBIN 9.3 g/dL (11.4-15.5); MEAN CORPUSCULAR HEMOGLOBIN 27.7 pg (23.9-33.9); MEAN CORPUSCULAR HGB CONC 32.2 g/dL (31.9-34.8); MEAN CORPUSCULAR VOLUME 86.2 fL (76.7-100.5); MEAN PLATELET VOLUME 8.7 fL (7.1-12.4); PLATELET COUNT,PLT 241 x10(3)uL (151-488); RED BLOOD CELL COUNT 3.37 x10(6)uL (3.60-5.20); RED CELL DISTRIBUTION WIDTH 18.2 % (12.3-16.5); WHITE BLOOD CELL COUNT,WBC 14.1 x10-3/uL (3.0-10.3)
[2023-02-19 06:59] LABS: BLOOD UREA NITROGEN,BUN 30 mg/dL (7-18); CALCIUM 8.5 mg/dL (8.6-10.2); CARBON DIOXIDE,CO2 27 mmol/L (21-32); CHLORIDE,CL 102 mmol/L (100-110); CREATININE 1.5 mg/dL (0.55-1.02); EST CRCL DRUG DOSING (CG) 21.44 mL/min; ESTIMATED GFR 33 mL/min (>60); GLUCOSE RANDOM 90 mg/dL (80-116); POTASSIUM,K 3.7 mmol/L (3.5-5.3); SODIUM,NA 137 mmol/L (135-145)
[2023-02-19 07:21] LABS: INR 7.05 (1.00-1.24); PROTHROMBIN TIME 76.3 sec (9.0-11.1)
[2023-02-19 07:23] LABS: BAND PERCENT MAN 4 % (0-6); LYMPHOCYTES PERCENT MAN 10 % (13-37); MONOCYTES PERCENT MAN 3 % (4-12); SEG NEUTROPHILS PERCENT MAN 83 % (46-82)
[2023-02-19] MEDS: oxyCODONE 5 MG Tab PO PRN ×2 (08:19→20:26)
[2023-02-19] MEDS ORDERED: Warfarin 2.5 MG Tab PO SCH (09:00)
[2023-02-19] MEDS: Furosemide 40 MG Tab PO SCH (09:30)
[2023-02-19] MEDS: Diltiazem 120 MG Cap.CD PO SCH (09:31)
[2023-02-19] MEDS: Potassium Chloride 10 MEQ Tab.ER PO SCH (09:32)
[2023-02-19] MEDS: Aspirin 81 MG Tab.EC PO SCH (09:32)
[2023-02-19] MEDS: Acetaminophen 325 MG Tab PO SCH ×4 (09:32→20:26)
[2023-02-19] MEDS: Cholecalciferol (Vitamin D3) 25 MCG Tab PO SCH (09:34)
[2023-02-19] MEDS ORDERED: Warfarin Sliding Scale PO SCH (10:00)
[2023-02-19] MEDS: Sodium Chloride 0.9% 1,000 ML IV SCH ×2 (10:07→23:28)
[2023-02-19] MEDS: Lidocaine 4% 1 each Patch TOP SCH (12:00)
[2023-02-19] MEDS: Sennosides 8.6 MG Tab PO SCH ×2 (14:20→20:26)
[2023-02-19] MEDS: Tamsulosin 0.4 MG Cap.ER PO SCH (20:25)
[2023-02-19] MEDS: Metoprolol Succinate 25 MG Tab.ER PO SCH (20:26)
[2023-02-20] MEDS: Piperacillin/Tazobactam 3.375 GM in Sodium Chloride 0.9% 50 ML IV SCH ×4 (03:43→22:25)
[2023-02-20] MEDS: Pantoprazole 40 MG Tab.CR PO SCH (05:41)
[2023-02-20] MEDS: Levothyroxine 50 MCG Tab PO SCH (05:41)
[2023-02-20] MEDS: oxyCODONE 5 MG Tab PO PRN ×2 (05:41→20:48)
[2023-02-20 06:25] LABS: HEMATOCRIT 29.7 % (34.2-48.2); HEMOGLOBIN 9.4 g/dL (11.4-15.5); MEAN CORPUSCULAR HEMOGLOBIN 27.2 pg (23.9-33.9); MEAN CORPUSCULAR HGB CONC 31.5 g/dL (31.9-34.8); MEAN CORPUSCULAR VOLUME 86.2 fL (76.7-100.5); MEAN PLATELET VOLUME 8.5 fL (7.1-12.4); PLATELET COUNT,PLT 300 x10(3)uL (151-488); RED BLOOD CELL COUNT 3.44 x10(6)uL (3.60-5.20); RED CELL DISTRIBUTION WIDTH 18.3 % (12.3-16.5); WHITE BLOOD CELL COUNT,WBC 17.1 x10-3/uL (3.0-10.3)
[2023-02-20 06:43] LABS: BLOOD UREA NITROGEN,BUN 25 mg/dL (7-18); CARBON DIOXIDE,CO2 23 mmol/L (21-32); CHLORIDE,CL 104 mmol/L (100-110); SODIUM,NA 137 mmol/L (135-145); VANCOMYCIN TROUGH 16.5 ug/mL (<0.8)
[2023-02-20 06:48] LABS: BUN/CREATININE RATIO 17.9 (9-20); CALCIUM 8.4 mg/dL (8.6-10.2); CREATININE 1.4 mg/dL (0.55-1.02); EST CRCL DRUG DOSING (CG) 22.98 mL/min; ESTIMATED GFR 36 mL/min (>60); GLUCOSE RANDOM 91 mg/dL (80-116)
[2023-02-20 06:58] LABS: BAND PERCENT MAN 4 % (0-6); LYMPHOCYTES PERCENT MAN 4 % (13-37); METAMYELOCYTE PERCENT MAN 1 % (0-0); MONOCYTES PERCENT MAN 6 % (4-12); SEG NEUTROPHILS PERCENT MAN 85 % (46-82)
[2023-02-20 06:59] LABS: HYPERSEGMENTED NEUTROPHILS MANY; TOXIC GRANULATION MODERATE (NOT SEEN)
[2023-02-20 08:30] LABS: INR 6.76 (1.00-1.24); PROTHROMBIN TIME 73.1 sec (9.0-11.1)
[2023-02-20] MEDS: Lidocaine 4% 1 each Patch TOP SCH (10:00)
[2023-02-20] MEDS: Aspirin 81 MG Tab.EC PO SCH (10:01)
[2023-02-20] MEDS: Potassium Chloride 10 MEQ Tab.ER PO SCH (10:01)
[2023-02-20] MEDS: Cholecalciferol (Vitamin D3) 25 MCG Tab PO SCH (10:01)
[2023-02-20] MEDS: Acetaminophen 325 MG Tab PO SCH ×4 (10:01→20:45)
[2023-02-20] MEDS: Sennosides 8.6 MG Tab PO SCH ×2 (10:02→20:47)
[2023-02-20] MEDS: Diltiazem 120 MG Cap.CD PO SCH (10:02)
[2023-02-20] MEDS: Furosemide 40 MG Tab PO SCH (10:02)
[2023-02-20] MEDS: Sodium Chloride 0.9% 1,000 ML IV SCH (10:30)
[2023-02-20] MEDS: Tamsulosin 0.4 MG Cap.ER PO SCH (20:46)
[2023-02-20] MEDS: Metoprolol Succinate 25 MG Tab.ER PO SCH (20:48)
[2023-02-20] MEDS: Sodium Chloride 0.9% 10 ML Syringe FLUSH PRN ×2 (22:25→22:55)
[2023-02-21] MEDS: Piperacillin/Tazobactam 3.375 GM in Sodium Chloride 0.9% 50 ML IV SCH ×3 (04:30→16:20)
[2023-02-21] MEDS: Sodium Chloride 0.9% 10 ML Syringe FLUSH PRN (05:12)
[2023-02-21 06:29] LABS: HEMOGLOBIN 9.5 g/dL (11.4-15.5); MEAN CORPUSCULAR HEMOGLOBIN 26.7 pg (23.9-33.9); MEAN CORPUSCULAR HGB CONC 31.6 g/dL (31.9-34.8); MEAN CORPUSCULAR VOLUME 84.4 fL (76.7-100.5); MEAN PLATELET VOLUME 7.7 fL (7.1-12.4); PLATELET COUNT,PLT 311 x10(3)uL (151-488); RED BLOOD CELL COUNT 3.55 x10(6)uL (3.60-5.20); RED CELL DISTRIBUTION WIDTH 18.3 % (12.3-16.5); WHITE BLOOD CELL COUNT,WBC 20.7 x10-3/uL (3.0-10.3)
[2023-02-21 06:38] LABS: BLOOD UREA NITROGEN,BUN 19 mg/dL (7-18); BUN/CREATININE RATIO 14.6 (9-20); CALCIUM 8.4 mg/dL (8.6-10.2); CARBON DIOXIDE,CO2 23 mmol/L (21-32); CHLORIDE,CL 104 mmol/L (100-110); CREATININE 1.3 mg/dL (0.55-1.02); EST CRCL DRUG DOSING (CG) 24.74 mL/min; ESTIMATED GFR 40 mL/min (>60); GLUCOSE RANDOM 95 mg/dL (80-116); POTASSIUM,K 3.4 mmol/L (3.5-5.3); SODIUM,NA 138 mmol/L (135-145)
[2023-02-21] MEDS: Levothyroxine 50 MCG Tab PO SCH (06:39)
[2023-02-21] MEDS: Pantoprazole 40 MG Tab.CR PO SCH (06:39)
[2023-02-21 06:48] LABS: BAND PERCENT MAN 1 % (0-6); LYMPHOCYTES PERCENT MAN 4 % (13-37); MONOCYTES PERCENT MAN 5 % (4-12); SEG NEUTROPHILS PERCENT MAN 90 % (46-82)
[2023-02-21] MEDS: oxyCODONE 5 MG Tab PO PRN (06:58)
[2023-02-21 07:00] LABS: PROTHROMBIN TIME 73.3 sec (9.0-11.1)
[2023-02-21 07:01] LABS: INR 6.78 (1.00-1.24)
[2023-02-21] MEDS: Sennosides 8.6 MG Tab PO SCH (09:16)
[2023-02-21] MEDS: Lidocaine 4% 1 each Patch TOP SCH (09:16)
[2023-02-21] MEDS: Potassium Chloride 10 MEQ Tab.ER PO SCH (09:16)
[2023-02-21] MEDS: Furosemide 40 MG Tab PO SCH (09:17)
[2023-02-21] MEDS: Acetaminophen 325 MG Tab PO SCH ×3 (09:17→16:45)
[2023-02-21] MEDS: Diltiazem 120 MG Cap.CD PO SCH (09:17)
[2023-02-21] MEDS: Cholecalciferol (Vitamin D3) 25 MCG Tab PO SCH (09:17)
[2023-02-21] MEDS ORDERED: Iopamidol 755 Mg/ML 100 ML Bottle IV SCH (11:15)
[2023-02-21] MEDS ORDERED: Phytonadione 5 MG Tab PO ONE (16:30)
[2023-02-21 18:14] VITALS: BP 124/75; PULSE 85
== END 2023-02-21 19:20 | DRG 872 ==
LOC: FB.ED 15:56 → FB.MS 19:15
PROVIDERS: ADMIT Family Medicine; ATTEND Family Medicine
DX: A41.9 Sepsis, unspecified organism (principal); N30.00 Acute cystitis without hematuria; N39.0 Urinary tract infection, site not specified; N17.9 Acute kidney failure, unspecified; E87.1 Hypo-osmolality and hyponatremia; F01.B18 Vascular dementia, moderate, with other behavioral disturbance; I13.0 Hypertensive heart and chronic kidney disease with heart failure and stage 1 through stage 4 chronic kidney disease, or unspecified chronic kidney disease; E86.0 Dehydration; Z20.822 Contact with and (suspected) exposure to COVID-19; I48.91 Unspecified atrial fibrillation; Z51.5 Encounter for palliative care; N18.31 Chronic kidney disease, stage 3a; I50.9 Heart failure, unspecified; J44.9 Chronic obstructive pulmonary disease, unspecified; E03.9 Hypothyroidism, unspecified; I25.2 Old myocardial infarction; M19.90 Unspecified osteoarthritis, unspecified site; R79.1 Abnormal coagulation profile; I48.0 Paroxysmal atrial fibrillation; D50.9 Iron deficiency anemia, unspecified; E88.09 Other disorders of plasma-protein metabolism, not elsewhere classified; Z68.31 Body mass index [BMI] 31.0-31.9, adult; E78.00 Pure hypercholesterolemia, unspecified; Z90.49 Acquired absence of other specified parts of digestive tract; Z90.89 Acquired absence of other organs; Z90.710 Acquired absence of both cervix and uterus; Z90.721 Acquired absence of ovaries, unilateral; Z11.52 Encounter for screening for COVID-19; Z79.890 Hormone replacement therapy; Z96.651 Presence of right artificial knee joint; Z96.652 Presence of left artificial knee joint; Z96.641 Presence of right artificial hip joint; Z96.642 Presence of left artificial hip joint; Z96.611 Presence of right artificial shoulder joint; Z96.612 Presence of left artificial shoulder joint; E66.9 Obesity, unspecified; Z66 Do not resuscitate; Z79.01 Long term (current) use of anticoagulants; Z79.82 Long term (current) use of aspirin; Z79.899 Other long term (current) drug therapy; Z95.2 Presence of prosthetic heart valve
CPT/HCPCS: 0241U; 36415; 71045; 74177; 80048; 80053; 80202; 81001; 82947; 83605; 85025; 85610; 86140; 87040; 87086; 96361; 96365; 96366; 99223; 99233; 99238; 99285; 99285-25; A9270-GY; C1758; J2543; J3370; J3480; J3490; J7030; J7050; Q9967

== ENCOUNTER 2023-08-13 06:56 | Emergency (ER) | payer MEDICARE ==
[2023-08-13] MEDS ORDERED: Sodium Chloride 0.9% 10 ML Syringe FLUSH PRN (07:06)
[2023-08-13 07:18] LABS: HEMATOCRIT 37.6 % (34.2-48.2); HEMOGLOBIN 11.9 g/dL (11.4-15.5); MEAN CORPUSCULAR HEMOGLOBIN 26.7 pg (23.9-33.9); MEAN CORPUSCULAR HGB CONC 31.5 g/dL (31.9-34.8); MEAN CORPUSCULAR VOLUME 84.5 fL (76.7-100.5); MEAN PLATELET VOLUME 7.7 fL (7.1-12.4); PLATELET COUNT,PLT 158 x10(3)uL (151-488); RED BLOOD CELL COUNT 4.45 x10(6)uL (3.60-5.20); RED CELL DISTRIBUTION WIDTH 17.3 % (12.3-16.5); WHITE BLOOD CELL COUNT,WBC 14.3 x10-3/uL (3.0-10.3)
[2023-08-13 07:21] LABS: BILIRUBIN,URINE NEGATIVE (NEGATIVE); GLUCOSE,URINE NORMAL (NORMAL); KETONES,URINE NEGATIVE (NEGATIVE); LEUKOCYTE ESTERASE,URINE LARGE (NEGATIVE); NITRITE,URINE NEGATIVE (NEGATIVE); OCCULT BLOOD,URINE LARGE (NEGATIVE); PROTEIN,URINE NEGATIVE (NEGATIVE); UROBILINOGEN,URINE NORMAL (NEGATIVE)
[2023-08-13 07:26] LABS: BLOOD UREA NITROGEN,BUN 37 mg/dL (7-18); BUN/CREATININE RATIO 21.8 (9-20); CALCIUM 9.4 mg/dL (8.6-10.2); CARBON DIOXIDE,CO2 28 mmol/L (21-32); CHLORIDE,CL 101 mmol/L (100-110); CREATININE 1.7 mg/dL (0.55-1.02); EST CRCL DRUG DOSING (CG) 17.74 mL/min; ESTIMATED GFR 28 mL/min (>60); GLUCOSE RANDOM 136 mg/dL (80-116); POTASSIUM,K 4.5 mmol/L (3.5-5.3); SODIUM,NA 139 mmol/L (135-145)
[2023-08-13 07:28] LABS: INR 1.22 (1.00-1.24); PROTHROMBIN TIME 12.5 sec (9.0-11.1)
[2023-08-13 07:32] LABS: A/G RATIO 0.9; ALANINE AMINOTRANSFERASE,ALT 12 U/L (12-36); ALBUMIN 3.5 g/dL (2.9-4.5); ALKALINE PHOSPHATASE 150 IU/L (56-112); ASPARTATE AMNIOTRANSFERASE,AST 17 IU/L (5-25); BILIRUBIN TOTAL 0.9 mg/dL (0.1-1.3); PROTEIN TOTAL,TP 7.5 g/dL (6.0-8.0)
[2023-08-13 07:35] LABS: LACTIC ACID 1.5 mmol/L (0.4-2.0)
[2023-08-13 07:40] LABS: APPEARANCE,URINE SLIGHTLY CLOUDY (CLEAR); COLOR,URINE YELLOW (YELLOW); RBC,URINE 75-100 (0-5); SQUAMOUS EPITHELIAL CELLS,UR OCCASIONAL (NS,R,O); WBC,URINE 50-75 (0-5)
[2023-08-13 07:41] LABS: BACTERIA,URINE MODERATE (NS); YEAST,URINE MODERATE (NS)
[2023-08-13 08:09] LABS: LYMPHOCYTES PERCENT MAN 3 % (13-37); MONOCYTES PERCENT MAN 3 % (4-12); SEG NEUTROPHILS PERCENT MAN 94 % (46-82)
[2023-08-13] MEDS: cefTRIAXone 1 GM Vial IVPUSH STA (09:24)
[2023-08-13 09:56] VITALS: BP 147/56; PULSE 76
== END 2023-08-13 09:46 ==
LOC: FB.ED 06:56
DX: N39.0 Urinary tract infection, site not specified (principal); K59.00 Constipation, unspecified; Z96.0 Presence of urogenital implants; I48.91 Unspecified atrial fibrillation; I50.9 Heart failure, unspecified; I11.0 Hypertensive heart disease with heart failure; E78.00 Pure hypercholesterolemia, unspecified; J44.9 Chronic obstructive pulmonary disease, unspecified; E03.9 Hypothyroidism, unspecified; E66.9 Obesity, unspecified; Z79.899 Other long term (current) drug therapy; Z79.82 Long term (current) use of aspirin; Z79.01 Long term (current) use of anticoagulants; Z86.19 Personal history of other infectious and parasitic diseases; Z68.30 Body mass index [BMI] 30.0-30.9, adult
CPT/HCPCS: 36415; 74176; 80053; 81001; 83605; 84484; 85025; 85610; 87086; 93010; 96374; 99283; 99284-25; J0696

== ENCOUNTER 2023-08-27 08:35 | Inpatient (IN) | payer MEDICARE, MEDICAID ==
[2023-08-27] MEDS: Sodium Chloride 0.9% 1,000 ML IV ONE (09:10)
[2023-08-27 09:13] LABS: HEMATOCRIT 37.2 % (34.2-48.2); HEMOGLOBIN 11.9 g/dL (11.4-15.5); MEAN CORPUSCULAR VOLUME 84.5 fL (76.7-100.5); MEAN PLATELET VOLUME 7.7 fL (7.1-12.4); PLATELET COUNT,PLT 156 x10(3)uL (151-488); RED CELL DISTRIBUTION WIDTH 17.3 % (12.3-16.5); WHITE BLOOD CELL COUNT,WBC 10.8 x10-3/uL (3.0-10.3)
[2023-08-27 09:21] LABS: INR 1.96 (1.00-1.24); PROTHROMBIN TIME 19.2 sec (9.0-11.1)
[2023-08-27 09:28] LABS: A/G RATIO 0.8; ALANINE AMINOTRANSFERASE,ALT 12 U/L (12-36); ALBUMIN 3.2 g/dL (2.9-4.5); ALKALINE PHOSPHATASE 138 IU/L (56-112); ASPARTATE AMNIOTRANSFERASE,AST 17 IU/L (5-25); BLOOD UREA NITROGEN,BUN 31 mg/dL (7-18); BUN/CREATININE RATIO 19.4 (9-20); CALCIUM 8.7 mg/dL (8.6-10.2); CARBON DIOXIDE,CO2 26 mmol/L (21-32); CHLORIDE,CL 102 mmol/L (100-110); CREATININE 1.6 mg/dL (0.55-1.02); ESTIMATED GFR 31 mL/min (>60); GLUCOSE RANDOM 119 mg/dL (80-116); POTASSIUM,K 4.5 mmol/L (3.5-5.3); PROTEIN TOTAL,TP 7.2 g/dL (6.0-8.0); SODIUM,NA 140 mmol/L (135-145)
[2023-08-27] MEDS: Acetaminophen 650 MG Supp RECTAL ONE (09:41)
[2023-08-27] MEDS: Acetaminophen 325 MG Tab PO ONE (09:51)
[2023-08-27 10:20] LABS: TROPONIN I 48.9 pg/mL (4.0-60.3)
[2023-08-27 10:22] LABS: C-REACTIVE PROTEIN 3.37 mg/dL (<0.50)
[2023-08-27 10:23] LABS: BILIRUBIN,URINE NEGATIVE (NEGATIVE); GLUCOSE,URINE NORMAL (NORMAL); KETONES,URINE NEGATIVE (NEGATIVE); LEUKOCYTE ESTERASE,URINE LARGE (NEGATIVE); NITRITE,URINE NEGATIVE (NEGATIVE); OCCULT BLOOD,URINE LARGE (NEGATIVE); PH,URINE 6.5 (5.0-6.5); PROTEIN,URINE TRACE mg/dL (NEGATIVE); UROBILINOGEN,URINE NORMAL (NEGATIVE)
[2023-08-27 10:27] LABS: COLOR,URINE YELLOW (YELLOW)
[2023-08-27 10:28] LABS: APPEARANCE,URINE CLOUDY (CLEAR); BACTERIA,URINE MANY (NS); RBC,URINE >100 (0-5); SQUAMOUS EPITHELIAL CELLS,UR FEW (NS,R,O); WBC,URINE >100 (0-5)
[2023-08-27 10:32] LABS: LYMPHOCYTES PERCENT MAN 7 % (13-37); MONOCYTES PERCENT MAN 4 % (4-12); SEG NEUTROPHILS PERCENT MAN 89 % (46-82)
[2023-08-27 10:33] LABS: ANISOCYTOSIS FEW
[2023-08-27 13:07] LABS: INFLUENZA A NAA NEGATIVE (NEGATIVE); INFLUENZA B NAA NEGATIVE (NEGATIVE); RESPIRATORY SYNCYTIAL VIR NAA NEGATIVE (NEGATIVE)
[2023-08-27 13:08] LABS: CORONAVIRUS COVID-19 NAA NEGATIVE (NEGATIVE)
[2023-08-27] MEDS ORDERED: Albuterol/Ipratropium 3.0-0.5 MG/3 ML Neb Soln INH PRN (13:42)
[2023-08-27] MEDS ORDERED: Bisacodyl 10 MG Supp RECTAL PRN (13:42)
[2023-08-27] MEDS ORDERED: guaiFENesin 100 MG/5 ML Soln 5 ML UD Cup PO PRN (13:42)
[2023-08-27] MEDS ORDERED: Loperamide 2 MG Cap PO SCH (13:45)
[2023-08-27] MEDS ORDERED: Acetaminophen 325 MG Tab PO PRN (13:58)
[2023-08-27] MEDS ORDERED: Carboxymethylcellulose Sodium 0.5% Ophth Soln 15 ML Bottle EYEBOTH PRN (14:04)
[2023-08-27] MEDS ORDERED: Aluminum Hydroxide/Magnesium Hydroxide Susp 30 ML Cup PO PRN (14:05)
[2023-08-27] MEDS: Cefepime 1 GM Vial IVPUSH SCH (14:22)
[2023-08-27] MEDS: Acetaminophen 500 MG Tab PO SCH (14:22)
[2023-08-27] MEDS: Sodium Chloride 0.9% 1,000 ML IV SCH (14:36)
[2023-08-27] MEDS ORDERED: Lidocaine 4% 1 each Patch TOP PRN (14:40)
[2023-08-27] MEDS: Warfarin** 1 MG TABLET PO ONE (16:53)
[2023-08-27] MEDS: Metoprolol Succinate 25 MG Tab.ER PO SCH (20:17)
[2023-08-28] MEDS: Pantoprazole 40 MG Tab.CR PO SCH (06:18)
[2023-08-28 06:41] LABS: BASOPHILS PERCENT AUTO 0.5 % (0.2-1.5); EOSINOPHILS PERCENT AUTO 0.4 % (0.6-8.1); HEMATOCRIT 34.6 % (34.2-48.2); HEMOGLOBIN 11.1 g/dL (11.4-15.5); LYMPHOCYTES ABSOLUTE AUTO 0.8 x10-3/uL (1.0-4.4); MEAN CORPUSCULAR HEMOGLOBIN 27.4 pg (23.9-33.9); MEAN CORPUSCULAR VOLUME 85.6 fL (76.7-100.5); MEAN PLATELET VOLUME 7.7 fL (7.1-12.4); MONOCYTES ABSOLUTE AUTO 0.5 x10-3/uL (0.3-1.0); MONOCYTES PERCENT AUTO 7.1 % (4.4-15.7); NEUTROPHILS ABSOLUTE AUTO 6.2 x10-3/uL (1.5-6.3); PLATELET COUNT,PLT 128 x10(3)uL (151-488); RED BLOOD CELL COUNT 4.04 x10(6)uL (3.60-5.20); RED CELL DISTRIBUTION WIDTH 17.2 % (12.3-16.5); WHITE BLOOD CELL COUNT,WBC 7.5 x10-3/uL (3.0-10.3)
[2023-08-28 06:49] LABS: INR 1.73 (1.00-1.24); PROTHROMBIN TIME 17.2 sec (9.0-11.1)
[2023-08-28 06:56] LABS: A/G RATIO 0.7; ALANINE AMINOTRANSFERASE,ALT 9 U/L (12-36); ALBUMIN 2.7 g/dL (2.9-4.5); ALKALINE PHOSPHATASE 118 IU/L (56-112); ASPARTATE AMNIOTRANSFERASE,AST 20 IU/L (5-25); BILIRUBIN TOTAL 0.8 mg/dL (0.1-1.3); BLOOD UREA NITROGEN,BUN 26 mg/dL (7-18); CALCIUM 8.4 mg/dL (8.6-10.2); CARBON DIOXIDE,CO2 28 mmol/L (21-32); CHLORIDE,CL 107 mmol/L (100-110); CREATININE 1.3 mg/dL (0.55-1.02); ESTIMATED GFR 39 mL/min (>60); GLUCOSE RANDOM 92 mg/dL (80-116); POTASSIUM,K 4.3 mmol/L (3.5-5.3); PROTEIN TOTAL,TP 6.4 g/dL (6.0-8.0); SODIUM,NA 142 mmol/L (135-145)
[2023-08-28] MEDS: Aspirin 81 MG Tab.EC PO SCH (09:11)
[2023-08-28] MEDS: Cholecalciferol (Vitamin D3) 25 MCG Tab PO SCH (09:11)
[2023-08-28] MEDS: Tamsulosin 0.4 MG Cap.ER PO SCH (09:12)
[2023-08-28] MEDS: Levothyroxine 50 MCG Tab PO SCH (09:12)
[2023-08-28] MEDS: Diltiazem 120 MG Cap.CD PO SCH (09:12)
[2023-08-28] MEDS: Polyethylene Glycol 3350 Powder 17 GM Packet PO SCH (09:12)
[2023-08-28] MEDS: Warfarin** 1 MG TABLET PO ONE (15:53)
[2023-08-29 06:57] LABS: BASOPHILS PERCENT AUTO 0.6 % (0.2-1.5); EOSINOPHILS ABSOLUTE AUTO 0.1 x10-3/uL (0.0-0.8); EOSINOPHILS PERCENT AUTO 1.4 % (0.6-8.1); HEMATOCRIT 35.7 % (34.2-48.2); HEMOGLOBIN 11.3 g/dL (11.4-15.5); MEAN CORPUSCULAR HEMOGLOBIN 26.9 pg (23.9-33.9); MEAN CORPUSCULAR HGB CONC 31.6 g/dL (31.9-34.8); MEAN CORPUSCULAR VOLUME 85.3 fL (76.7-100.5); MEAN PLATELET VOLUME 8.1 fL (7.1-12.4); MONOCYTES ABSOLUTE AUTO 0.6 x10-3/uL (0.3-1.0); MONOCYTES PERCENT AUTO 8.2 % (4.4-15.7); NEUTROPHILS ABSOLUTE AUTO 5.3 x10-3/uL (1.5-6.3); NEUTROPHILS PERCENT AUTO 75.8 % (30.8-76.2); PLATELET COUNT,PLT 135 x10(3)uL (151-488); RED CELL DISTRIBUTION WIDTH 17.5 % (12.3-16.5)
[2023-08-29 07:05] LABS: INR 1.92 (1.00-1.24); PROTHROMBIN TIME 18.9 sec (9.0-11.1)
[2023-08-29 07:16] LABS: RED BLOOD CELL COUNT 4.18 x10(6)uL (3.60-5.20)
[2023-08-29 07:21] LABS: A/G RATIO 0.8; ALANINE AMINOTRANSFERASE,ALT 13 U/L (12-36); ALKALINE PHOSPHATASE 128 IU/L (56-112); ASPARTATE AMNIOTRANSFERASE,AST 16 IU/L (5-25); BILIRUBIN TOTAL 0.7 mg/dL (0.1-1.3); BLOOD UREA NITROGEN,BUN 27 mg/dL (7-18); BUN/CREATININE RATIO 20.8 (9-20); CALCIUM 8.6 mg/dL (8.6-10.2); CARBON DIOXIDE,CO2 28 mmol/L (21-32); CHLORIDE,CL 106 mmol/L (100-110); CREATININE 1.3 mg/dL (0.55-1.02); ESTIMATED GFR 39 mL/min (>60); GLUCOSE RANDOM 99 mg/dL (80-116); SODIUM,NA 142 mmol/L (135-145)
[2023-08-29] MEDS: Sodium Chloride 0.9% 10 ML Syringe FLUSH PRN (09:32)
[2023-08-29] MEDS: Ampicillin 2 GM in Sodium Chloride 0.9% 100 ML IV SCH (09:35)
[2023-08-29] MEDS: Warfarin** 1 MG TABLET PO SCH (16:26)
[2023-08-30 07:33] LABS: BASOPHILS PERCENT AUTO 0.3 % (0.2-1.5); EOSINOPHILS ABSOLUTE AUTO 0.1 x10-3/uL (0.0-0.8); EOSINOPHILS PERCENT AUTO 2.6 % (0.6-8.1); HEMATOCRIT 32.8 % (34.2-48.2); HEMOGLOBIN 10.4 g/dL (11.4-15.5); LYMPHOCYTES ABSOLUTE AUTO 0.7 x10-3/uL (1.0-4.4); LYMPHOCYTES PERCENT AUTO 13.1 % (18.4-52.1); MEAN CORPUSCULAR HEMOGLOBIN 27.1 pg (23.9-33.9); MEAN CORPUSCULAR HGB CONC 31.8 g/dL (31.9-34.8); MEAN CORPUSCULAR VOLUME 85.2 fL (76.7-100.5); MEAN PLATELET VOLUME 8.1 fL (7.1-12.4); MONOCYTES ABSOLUTE AUTO 0.6 x10-3/uL (0.3-1.0); MONOCYTES PERCENT AUTO 11.8 % (4.4-15.7); NEUTROPHILS ABSOLUTE AUTO 3.7 x10-3/uL (1.5-6.3); NEUTROPHILS PERCENT AUTO 72.2 % (30.8-76.2); PLATELET COUNT,PLT 142 x10(3)uL (151-488); RED CELL DISTRIBUTION WIDTH 17.4 % (12.3-16.5); WHITE BLOOD CELL COUNT,WBC 5.2 x10-3/uL (3.0-10.3)
[2023-08-30 07:38] LABS: PROTHROMBIN TIME 19.7 sec (9.0-11.1)
[2023-08-30 07:45] LABS: A/G RATIO 0.7; ALANINE AMINOTRANSFERASE,ALT 13 U/L (12-36); ALBUMIN 2.8 g/dL (2.9-4.5); ALKALINE PHOSPHATASE 121 IU/L (56-112); ASPARTATE AMNIOTRANSFERASE,AST 19 IU/L (5-25); BILIRUBIN TOTAL 0.8 mg/dL (0.1-1.3); BLOOD UREA NITROGEN,BUN 23 mg/dL (7-18); BUN/CREATININE RATIO 19.2 (9-20); CALCIUM 8.4 mg/dL (8.6-10.2); CARBON DIOXIDE,CO2 26 mmol/L (21-32); CHLORIDE,CL 108 mmol/L (100-110); CREATININE 1.2 mg/dL (0.55-1.02); ESTIMATED GFR 43 mL/min (>60); GLUCOSE RANDOM 94 mg/dL (80-116); POTASSIUM,K 4.2 mmol/L (3.5-5.3); PROTEIN TOTAL,TP 6.6 g/dL (6.0-8.0); SODIUM,NA 142 mmol/L (135-145)
[2023-08-30 07:47] LABS: RED BLOOD CELL COUNT 3.85 x10(6)uL (3.60-5.20)
[2023-08-30] MEDS: Warfarin** 1 MG TABLET PO ONE (16:08)
[2023-08-31 07:31] LABS: BASOPHILS PERCENT AUTO 0.6 % (0.2-1.5); EOSINOPHILS ABSOLUTE AUTO 0.1 x10-3/uL (0.0-0.8); EOSINOPHILS PERCENT AUTO 3.1 % (0.6-8.1); HEMATOCRIT 34.6 % (34.2-48.2); LYMPHOCYTES ABSOLUTE AUTO 0.8 x10-3/uL (1.0-4.4); LYMPHOCYTES PERCENT AUTO 17.1 % (18.4-52.1); MEAN CORPUSCULAR HEMOGLOBIN 27.2 pg (23.9-33.9); MEAN CORPUSCULAR HGB CONC 31.8 g/dL (31.9-34.8); MEAN CORPUSCULAR VOLUME 85.5 fL (76.7-100.5); MEAN PLATELET VOLUME 8.4 fL (7.1-12.4); MONOCYTES ABSOLUTE AUTO 0.5 x10-3/uL (0.3-1.0); MONOCYTES PERCENT AUTO 10.5 % (4.4-15.7); NEUTROPHILS ABSOLUTE AUTO 3.3 x10-3/uL (1.5-6.3); NEUTROPHILS PERCENT AUTO 68.7 % (30.8-76.2); PLATELET COUNT,PLT 148 x10(3)uL (151-488); RED BLOOD CELL COUNT 4.05 x10(6)uL (3.60-5.20); RED CELL DISTRIBUTION WIDTH 17.2 % (12.3-16.5); WHITE BLOOD CELL COUNT,WBC 4.8 x10-3/uL (3.0-10.3)
[2023-08-31 07:32] LABS: INR 2.26 (1.00-1.24); PROTHROMBIN TIME 21.9 sec (9.0-11.1)
[2023-08-31 07:35] LABS: A/G RATIO 0.7; ALANINE AMINOTRANSFERASE,ALT 10 U/L (12-36); ALKALINE PHOSPHATASE 131 IU/L (56-112); ASPARTATE AMNIOTRANSFERASE,AST 28 IU/L (5-25); BILIRUBIN TOTAL 0.8 mg/dL (0.1-1.3); BLOOD UREA NITROGEN,BUN 17 mg/dL (7-18); BUN/CREATININE RATIO 15.5 (9-20); CALCIUM 8.6 mg/dL (8.6-10.2); CARBON DIOXIDE,CO2 27 mmol/L (21-32); CHLORIDE,CL 107 mmol/L (100-110); CREATININE 1.1 mg/dL (0.55-1.02); ESTIMATED GFR 48 mL/min (>60); GLUCOSE RANDOM 88 mg/dL (80-116); POTASSIUM,K 5.4 mmol/L (3.5-5.3); PROTEIN TOTAL,TP 7.2 g/dL (6.0-8.0); SODIUM,NA 142 mmol/L (135-145)
[2023-08-31] MEDS: Warfarin** 1 MG TABLET PO ONE (16:38)
[2023-09-01 06:47] LABS: BASOPHILS PERCENT AUTO 0.7 % (0.2-1.5); EOSINOPHILS ABSOLUTE AUTO 0.1 x10-3/uL (0.0-0.8); EOSINOPHILS PERCENT AUTO 2.7 % (0.6-8.1); HEMATOCRIT 33.5 % (34.2-48.2); HEMOGLOBIN 10.7 g/dL (11.4-15.5); LYMPHOCYTES ABSOLUTE AUTO 0.8 x10-3/uL (1.0-4.4); LYMPHOCYTES PERCENT AUTO 16.5 % (18.4-52.1); MEAN CORPUSCULAR HEMOGLOBIN 27.2 pg (23.9-33.9); MEAN CORPUSCULAR HGB CONC 31.8 g/dL (31.9-34.8); MEAN CORPUSCULAR VOLUME 85.5 fL (76.7-100.5); MEAN PLATELET VOLUME 7.8 fL (7.1-12.4); MONOCYTES ABSOLUTE AUTO 0.5 x10-3/uL (0.3-1.0); MONOCYTES PERCENT AUTO 10.2 % (4.4-15.7); NEUTROPHILS ABSOLUTE AUTO 3.5 x10-3/uL (1.5-6.3); NEUTROPHILS PERCENT AUTO 69.9 % (30.8-76.2); PLATELET COUNT,PLT 151 x10(3)uL (151-488); RED CELL DISTRIBUTION WIDTH 17.4 % (12.3-16.5)
[2023-09-01 06:53] LABS: INR 2.51 (1.00-1.24); PROTHROMBIN TIME 24.2 sec (9.0-11.1)
[2023-09-01 06:56] LABS: A/G RATIO 0.8; ALANINE AMINOTRANSFERASE,ALT 13 U/L (12-36); ALBUMIN 2.8 g/dL (2.9-4.5); ALKALINE PHOSPHATASE 122 IU/L (56-112); ASPARTATE AMNIOTRANSFERASE,AST 18 IU/L (5-25); BILIRUBIN TOTAL 0.6 mg/dL (0.1-1.3); BLOOD UREA NITROGEN,BUN 15 mg/dL (7-18); BUN/CREATININE RATIO 12.5 (9-20); CALCIUM 8.6 mg/dL (8.6-10.2); CARBON DIOXIDE,CO2 27 mmol/L (21-32); CHLORIDE,CL 106 mmol/L (100-110); CREATININE 1.2 mg/dL (0.55-1.02); ESTIMATED GFR 43 mL/min (>60); GLUCOSE RANDOM 92 mg/dL (80-116); POTASSIUM,K 4.4 mmol/L (3.5-5.3); PROTEIN TOTAL,TP 6.5 g/dL (6.0-8.0); SODIUM,NA 142 mmol/L (135-145)
[2023-09-01 07:00] LABS: RED BLOOD CELL COUNT 3.92 x10(6)uL (3.60-5.20)
[2023-09-01] MEDS: Warfarin** 1 MG TABLET PO ONE (16:06)
[2023-09-02 07:21] LABS: INR 2.87 (1.00-1.24); PROTHROMBIN TIME 27.4 sec (9.0-11.1)
[2023-09-02 12:33] VITALS: BP 118/50; PULSE 77
[2023-09-02] MEDS ORDERED: Warfarin** 1 MG TABLET PO ONE (16:00)
== END 2023-09-02 13:22 | DRG 689 ==
LOC: FB.ED 08:35 → FB.MS 11:55 → OBSVTOIN 08-28 08:46
PROVIDERS: ADMIT Internal Medicine; ATTEND Family Medicine
DX: N39.0 Urinary tract infection, site not specified (principal); I33.0 Acute and subacute infective endocarditis; D72.829 Elevated white blood cell count, unspecified; R79.82 Elevated C-reactive protein (CRP); R50.9 Fever, unspecified; I13.0 Hypertensive heart and chronic kidney disease with heart failure and stage 1 through stage 4 chronic kidney disease, or unspecified chronic kidney disease; F02.B18 Dementia in other diseases classified elsewhere, moderate, with other behavioral disturbance; I48.91 Unspecified atrial fibrillation; I10 Essential (primary) hypertension; R78.81 Bacteremia; Z16.23 Resistance to quinolones and fluoroquinolones; Z16.29 Resistance to other single specified antibiotic; Z66 Do not resuscitate; Z79.01 Long term (current) use of anticoagulants; N18.31 Chronic kidney disease, stage 3a; E03.9 Hypothyroidism, unspecified; H54.7 Unspecified visual loss; I50.9 Heart failure, unspecified; E78.00 Pure hypercholesterolemia, unspecified; J44.9 Chronic obstructive pulmonary disease, unspecified; M19.90 Unspecified osteoarthritis, unspecified site; E66.9 Obesity, unspecified; Z96.649 Presence of unspecified artificial hip joint; Z96.659 Presence of unspecified artificial knee joint; Z96.619 Presence of unspecified artificial shoulder joint; E86.0 Dehydration; Z96.0 Presence of urogenital implants; I48.0 Paroxysmal atrial fibrillation; I25.10 Atherosclerotic heart disease of native coronary artery without angina pectoris; E11.22 Type 2 diabetes mellitus with diabetic chronic kidney disease; I15.0 Renovascular hypertension; S32.010D Wedge compression fracture of first lumbar vertebra, subsequent encounter for fracture with routine healing; I25.2 Old myocardial infarction; Z95.2 Presence of prosthetic heart valve; Z79.899 Other long term (current) drug therapy; Z79.2 Long term (current) use of antibiotics; Z79.82 Long term (current) use of aspirin; Z68.28 Body mass index [BMI] 28.0-28.9, adult; Z85.828 Personal history of other malignant neoplasm of skin; Z98.890 Other specified postprocedural states; Z90.49 Acquired absence of other specified parts of digestive tract; Z90.710 Acquired absence of both cervix and uterus
CPT/HCPCS: 0241U; 36415; 71045; 80053; 81001; 83605; 84484; 85025; 85610; 86140; 87040; 87077; 87086; 87186; 93005; 93010; 93306; 96360; 96361; 96374; 99285; 99285-25; A9270-GY; G0378; J0290; J0692; J3490; J7030

== ENCOUNTER 2023-09-07 12:55 | Emergency (ER) | payer MEDICARE, MEDICAID ==
[2023-09-07] MEDS: Sodium Chloride 0.9% 10 ML Syringe FLUSH PRN (13:10)
[2023-09-07 13:36] LABS: BLOOD UREA NITROGEN,BUN 22 mg/dL (7-18); BUN/CREATININE RATIO 13.8 (9-20); CALCIUM 8.3 mg/dL (8.6-10.2); CARBON DIOXIDE,CO2 29 mmol/L (21-32); CHLORIDE,CL 98 mmol/L (100-110); CREATININE 1.6 mg/dL (0.55-1.02); EST CRCL DRUG DOSING (CG) 18.85 mL/min; ESTIMATED GFR 31 mL/min (>60); GLUCOSE RANDOM 121 mg/dL (80-116); SODIUM,NA 130 mmol/L (135-145)
[2023-09-07 13:41] LABS: A/G RATIO 0.8; ALANINE AMINOTRANSFERASE,ALT 9 U/L (12-36); ALBUMIN 3.1 g/dL (2.9-4.5); ALKALINE PHOSPHATASE 137 IU/L (56-112); ASPARTATE AMNIOTRANSFERASE,AST 16 IU/L (5-25); BILIRUBIN TOTAL 0.6 mg/dL (0.1-1.3); MAGNESIUM 1.8 mg/dL (1.8-2.5); PROTEIN TOTAL,TP 7.1 g/dL (6.0-8.0)
[2023-09-07 13:49] LABS: BILIRUBIN,URINE NEGATIVE (NEGATIVE); GLUCOSE,URINE NORMAL (NORMAL); KETONES,URINE NEGATIVE (NEGATIVE); LEUKOCYTE ESTERASE,URINE LARGE (NEGATIVE); NITRITE,URINE NEGATIVE (NEGATIVE); OCCULT BLOOD,URINE LARGE (NEGATIVE); PROTEIN,URINE TRACE mg/dL (NEGATIVE); UROBILINOGEN,URINE NORMAL (NEGATIVE)
[2023-09-07 13:53] LABS: C-REACTIVE PROTEIN 0.95 mg/dL (<0.50); TROPONIN I 10.7 pg/mL (4.0-60.3)
[2023-09-07 13:54] LABS: INR 2.28 (1.00-1.24); PROTHROMBIN TIME 22.2 sec (9.0-11.1)
[2023-09-07 14:05] LABS: APPEARANCE,URINE CLOUDY (CLEAR); BACTERIA,URINE MANY (NS); COLOR,URINE YELLOW (YELLOW); RBC,URINE >100 (0-5); SQUAMOUS EPITHELIAL CELLS,UR OCCASIONAL (NS,R,O); WBC,URINE >100 (0-5)
[2023-09-07 14:11] LABS: EOSINOPHILS ABSOLUTE AUTO 0.3 x10-3/uL (0.0-0.8)
[2023-09-07 14:13] LABS: HEMOGLOBIN 11.2 g/dL (11.4-15.5); MEAN PLATELET VOLUME 7.7 fL (7.1-12.4)
[2023-09-07 14:16] LABS: LYMPHOCYTES ABSOLUTE AUTO 1.2 x10-3/uL (1.0-4.4); MEAN CORPUSCULAR VOLUME 86.1 fL (76.7-100.5); NEUTROPHILS ABSOLUTE AUTO 3.4 x10-3/uL (1.5-6.3); RED CELL DISTRIBUTION WIDTH 17.8 % (12.3-16.5)
[2023-09-07 14:18] LABS: BASOPHILS PERCENT AUTO 0.3 % (0.2-1.5); EOSINOPHILS PERCENT AUTO 5.2 % (0.6-8.1); HEMATOCRIT 29.8 % (34.2-48.2); LYMPHOCYTES PERCENT AUTO 21.6 % (18.4-52.1); MEAN CORPUSCULAR HEMOGLOBIN 32.5 pg (23.9-33.9); MEAN CORPUSCULAR HGB CONC 37.7 g/dL (31.9-34.8); MONOCYTES ABSOLUTE AUTO 0.6 x10-3/uL (0.3-1.0); MONOCYTES PERCENT AUTO 11.2 % (4.4-15.7); NEUTROPHILS PERCENT AUTO 61.7 % (30.8-76.2); PLATELET COUNT,PLT 151 x10(3)uL (151-488); WHITE BLOOD CELL COUNT,WBC 5.5 x10-3/uL (3.0-10.3)
[2023-09-07] MEDS: Albuterol/Ipratropium 3.0-0.5 MG/3 ML Neb Soln NEB ONE (14:19)
[2023-09-07 14:44] LABS: INFLUENZA A NAA NEGATIVE (NEGATIVE); INFLUENZA B NAA NEGATIVE (NEGATIVE); RESPIRATORY SYNCYTIAL VIR NAA NEGATIVE (NEGATIVE)
[2023-09-07] MEDS: methylPREDNISolone Sodium Succinate 40 MG/1 ML SDV IVPUSH ONE (14:44)
[2023-09-07 14:46] LABS: RED BLOOD CELL COUNT 3.46 x10(6)uL (3.60-5.20)
[2023-09-07 14:48] LABS: CORONAVIRUS COVID-19 NAA NEGATIVE (NEGATIVE)
[2023-09-07] MEDS: Metolazone 2.5 MG Tab PO ONE ×2 (15:16)
[2023-09-07] MEDS: cefTRIAXone 2 GM Vial IVPUSH ONE (15:44)
[2023-09-07] MEDS: cefTRIAXone 1 GM Vial IVPUSH STA (15:50)
[2023-09-07 16:24] VITALS: BP 140/64; PULSE 68
== END 2023-09-07 16:17 ==
LOC: FB.ED 12:55
DX: J44.1 Chronic obstructive pulmonary disease with (acute) exacerbation (principal); I11.0 Hypertensive heart disease with heart failure; I50.9 Heart failure, unspecified; N39.0 Urinary tract infection, site not specified; E87.1 Hypo-osmolality and hyponatremia; I48.91 Unspecified atrial fibrillation; F03.90 Unspecified dementia, unspecified severity, without behavioral disturbance, psychotic disturbance, mood disturbance, and anxiety; E03.9 Hypothyroidism, unspecified; Z79.890 Hormone replacement therapy; Z79.82 Long term (current) use of aspirin; Z79.01 Long term (current) use of anticoagulants; Z79.899 Other long term (current) drug therapy; Z90.710 Acquired absence of both cervix and uterus
CPT/HCPCS: 0241U; 36415; 71045; 80053; 81001; 83735; 83880; 84484; 85025; 85610; 86140; 87086; 93005; 94640; 96374; 96375; 99285-25; A9270-GY; J0696; J2920; J3490; J7620

== ENCOUNTER 2024-02-14 15:22 | Emergency (ER) | payer MEDICARE ==
[2024-02-14] MEDS ORDERED: Sodium Chloride 0.9% 10 ML Syringe FLUSH PRN (16:07)
[2024-02-14 16:24] LABS: BLOOD UREA NITROGEN,BUN 28 mg/dL (7-18); BUN/CREATININE RATIO 16.5 (9-20); CARBON DIOXIDE,CO2 31 mmol/L (21-32); CHLORIDE,CL 102 mmol/L (100-110); CREATININE 1.7 mg/dL (0.55-1.02); EST CRCL DRUG DOSING (CG) 20.19 mL/min; ESTIMATED GFR 28 mL/min (>60); GLUCOSE RANDOM 101 mg/dL (80-116); POTASSIUM,K 4.1 mmol/L (3.5-5.3); SODIUM,NA 142 mmol/L (135-145)
[2024-02-14 16:25] LABS: BASOPHILS PERCENT AUTO 0.6 % (0.2-1.5); EOSINOPHILS ABSOLUTE AUTO 0.1 x10-3/uL (0.0-0.8); EOSINOPHILS PERCENT AUTO 1.2 % (0.6-8.1); HEMATOCRIT 35.5 % (34.2-48.2); HEMOGLOBIN 11.4 g/dL (11.4-15.5); LYMPHOCYTES ABSOLUTE AUTO 1.5 x10-3/uL (1.0-4.4); LYMPHOCYTES PERCENT AUTO 18.9 % (18.4-52.1); MEAN CORPUSCULAR HEMOGLOBIN 27.6 pg (23.9-33.9); MEAN CORPUSCULAR VOLUME 86.1 fL (76.7-100.5); MEAN PLATELET VOLUME 8.1 fL (7.1-12.4); MONOCYTES ABSOLUTE AUTO 1.1 x10-3/uL (0.3-1.0); MONOCYTES PERCENT AUTO 13.5 % (4.4-15.7); NEUTROPHILS ABSOLUTE AUTO 5.2 x10-3/uL (1.5-6.3); NEUTROPHILS PERCENT AUTO 65.8 % (30.8-76.2); PLATELET COUNT,PLT 141 x10(3)uL (151-488); RED BLOOD CELL COUNT 4.13 x10(6)uL (3.60-5.20); RED CELL DISTRIBUTION WIDTH 15.1 % (12.3-16.5); WHITE BLOOD CELL COUNT,WBC 7.9 x10-3/uL (3.0-10.3)
[2024-02-14 16:27] LABS: INR 1.79 (1.00-1.24); PROTHROMBIN TIME 17.8 sec (9.0-11.1)
[2024-02-14 16:33] LABS: BILIRUBIN,URINE NEGATIVE (NEGATIVE); GLUCOSE,URINE NORMAL (NORMAL); KETONES,URINE NEGATIVE (NEGATIVE); LEUKOCYTE ESTERASE,URINE LARGE (NEGATIVE); NITRITE,URINE NEGATIVE (NEGATIVE); OCCULT BLOOD,URINE LARGE (NEGATIVE); PROTEIN,URINE TRACE mg/dL (NEGATIVE); UROBILINOGEN,URINE NORMAL (NEGATIVE)
[2024-02-14 16:35] LABS: ALANINE AMINOTRANSFERASE,ALT 11 U/L (12-36); ALBUMIN 3.6 g/dL (2.9-4.5); ALKALINE PHOSPHATASE 140 IU/L (56-112); ASPARTATE AMNIOTRANSFERASE,AST 16 IU/L (5-25); BILIRUBIN TOTAL 0.8 mg/dL (0.1-1.3); PROTEIN TOTAL,TP 7.3 g/dL (6.0-8.0)
[2024-02-14] MEDS: Sodium Chloride 0.9% 1,000 ML IV SCH (16:36)
[2024-02-14 16:44] LABS: APPEARANCE,URINE SLIGHTLY CLOUDY (CLEAR); BACTERIA,URINE MODERATE (NS); COLOR,URINE YELLOW (YELLOW); SQUAMOUS EPITHELIAL CELLS,UR OCCASIONAL (NS,R,O); WBC,URINE 20-30 (0-5)
[2024-02-14] MEDS ORDERED: Nirmatrelvir/Ritonavir 150 MG/100 MG Dose Pack (Renal Dose) PO SCH (17:00)
[2024-02-14 18:07] VITALS: BP 120/56; PULSE 66
== END 2024-02-14 18:00 ==
LOC: FB.ED 15:22
DX: U07.1 COVID-19 (principal); I13.0 Hypertensive heart and chronic kidney disease with heart failure and stage 1 through stage 4 chronic kidney disease, or unspecified chronic kidney disease; I50.9 Heart failure, unspecified; N18.4 Chronic kidney disease, stage 4 (severe); E66.9 Obesity, unspecified; Z68.29 Body mass index [BMI] 29.0-29.9, adult; E03.9 Hypothyroidism, unspecified; Z90.710 Acquired absence of both cervix and uterus; Z79.899 Other long term (current) drug therapy; Z79.890 Hormone replacement therapy
CPT/HCPCS: 71045; 80053; 81001; 83605; 83735; 83880; 85025; 85610; 86140; 87086; 87088; 87186; 96360; 99284; 99285; J7030; A9270-GY